=== PATIENT | female | born 1985 | race Caucasian/White ===

== ENCOUNTER 2019-10-16 11:22 | Observation (INO) | payer OTHER, SELFPAY ==
--- NOTE | ~2019-10-16 | US_ITS ---
EXAMINATION: US OB BPP wo non-stress DATE: 10/16/2019 12:37 INDICATION: Gestational diabetes. Third trimester. TECHNIQUE: Real-time pelvic ultrasound was performed. COMPARISON: None. FINDINGS: There is a single living fetus in vertex presentation. The placenta is anterior. heart rate is 131 beats per minute (bpm). Biophysical profile performed by the technologist: breathing (30 sec sustained breathing in 30 minutes): 2 out of 2 movement (3 gross body movements in 30 minutes): 2 out of 2 tone (one episode of aylyhmx-lucuhnnxt-pbbafoe limb movement): 2 out of 2 Amniotic fluid pocket (2 cm): 2 out of 2 Total score: 8 out of 8 IMPRESSION: 1. Single living fetus in vertex presentation. 2. Biophysical profile 8 out of 8. Reviewed, dictated and finalized at location A.
[2019-10-16 11:22] VITALS: BMI 22.0
[2019-10-16] MEDS: BETAMETHASONE SOD PHOS/ACETATE 30 MG/5 ML VIAL 12 MG IM (14:11)
--- NOTE | 2019-10-16 14:28 | OBADM ---
This patient, Jia Reynoso, admitted to the OB room OB Post 115 for observation. Patient/family oriented to hospital policies and general routines including ID bracelet, bed and alarms, visiting hours, pain management, procedures, bathroom and other care routines, personal items, smoking policy, room service/diet, and visiting hours. Patient/Family are encouraged to report perceived risks to care and to ask questions if they do not understand what they are told or what they should do.
--- NOTE | 2019-11-09 08:09 | PM.OBTRLD ---
OB - Triage/Final Diagnosis Visit Information Date of evaluation: 10/16/19 Final Diagnosis (1) False labor: Code(s): O47.9 - False labor, unspecified Status: Acute
== END 2019-10-16 14:15 | disposition home or self-care (01) ==
LOC: ANHOBOP 13:17 → ANHOBPP 13:38
PROVIDERS: Admitting Provider Obstetrics & Gynecology; Visit Provider Obstetrics & Gynecology
DX: O47.03 False labor before 37 completed weeks of gestation, third trimester (principal); Z3A.35 35 weeks gestation of pregnancy
CPT/HCPCS: 76819; 96372; G0378; G0379; J0702

== ENCOUNTER 2019-10-17 15:19 | Observation (INO) | payer OTHER, SELFPAY ==
--- NOTE | 2019-10-17 15:45 | OBADM ---
This patient, Jia Reynoso, admitted to the OB room Labor/Delivery/Recovery 119 for observation. Patient/family oriented to hospital policies and general routines including ID bracelet, bed and alarms, visiting hours, pain management, procedures, bathroom and other care routines, personal items, smoking policy, room service/diet, and visiting hours. Patient/Family are encouraged to report perceived risks to care and to ask questions if they do not understand what they are told or what they should do.
[2019-10-17 16:31] VITALS: BP 109/51; PULSE 79
[2019-10-17 16:46] VITALS: BP 106/57; PULSE 72
[2019-10-17] MEDS: BETAMETHASONE SOD PHOS/ACETATE 30 MG/5 ML VIAL 12 MG IM (16:56)
[2019-10-17 17:01] VITALS: BP 109/60; PULSE 70
[2019-10-17 17:16] VITALS: BP 107/52; PULSE 68
[2019-10-17 17:31] VITALS: BP 108/59; PULSE 71
--- NOTE | 2019-11-09 08:05 | PM.OBTRLD ---
OB - Triage/Final Diagnosis Visit Information Date of evaluation: 10/17/19 Reason for evaluation: threatened labor Final Diagnosis (1) False labor: Code(s): O47.9 - False labor, unspecified Status: Acute
== END 2019-10-17 17:38 | disposition home or self-care (01) ==
PROVIDERS: Admitting Provider Obstetrics & Gynecology; Visit Provider Obstetrics & Gynecology
DX: O47.03 False labor before 37 completed weeks of gestation, third trimester (principal); Z3A.35 35 weeks gestation of pregnancy
CPT/HCPCS: 96372; G0378; G0379; J0702

== ENCOUNTER 2019-10-28 05:54 | Inpatient (IN) | payer OTHER, SELFPAY ==
[2019-10-28] VITALS (61 sets, daily range): BP systolic 101–150; BP diastolic 59–95; PULSE 54–103; RESP 14–16; TEMP 36.3–36.8; O2SAT 99–100
[2019-10-28] MEDS: LACTATED RINGERS 1,000 ML 125 ML IV CONT ×2 (07:09→08:47)
--- NOTE | 2019-10-28 07:16 | WPDOBADMIT ---
Obstetrics - Admit Note Admission Note: record reviewed. No pertinent additions to the history and/or any subsequent changes in the physical findings that are not consistent with the expected course of the were found. MIL for FGR, attempted AROM, pitocin, anticipate vaginal delivery Additions to the history and/or subsequent changes in the physical findings follow. None.
[2019-10-28] MEDS: OXYTOCIN 30 UNITS/NS 500 ML 30 UNITS/500 ML BAG IV CONT (07:17)
--- NOTE | 2019-10-28 07:24 | WPDANESEPP ---
Anes - Eval Pre Procedure Procedure: Labor epidural Date/Time: 10/28/19 07:24 Surgeon: saleem Preop Diagnosis: labor pain Pre Op Diagnosis: IND Patient Data Age: 34 Gender: F Height: Weight: Allergies Allergy/AdvReac Type Severity Reaction Status Date / Time Sulfa (Sulfonamide Allergy Severe Hives / Verified 12/18/12 09:09 Antibiotics) Red Face Penicillins Allergy Hives Verified 10/16/19 13:41 Home Medications Medication Instructions Recorded Confirmed Type PNV cmb#95-ferrous fumarate-FA 1 tablet PO 10/16/19 History [] Patient hx anesthesia problems: none Family hx anesthesia problems: none PMFSH Family History Family History (Updated 10/16/19 @ 13:44 by Arnaldo Chen RN) Mother Hypertension Grandparent Diabetes mellitus Acute myocardial infarction Congestive heart failure Sibling AVM (arteriovenous malformation) brain Social History Social History Spiritual care concerns: No Exam Day of Procedure 10/28/19 07:24
[2019-10-28 07:30] LABS: Basophils Absolute Auto 0.1 K/mm3 (0.0-0.1); Basophils Percent Auto 0.4 % (0.2-1.2); Eosinophils Absolute Auto 0.2 K/mm3 (0-0.3); Eosinophils Percent Auto 1.6 % (0-4.4); Hematocrit 46.5 % (37.0-47.0); Hemoglobin 16.1 g/dL (12.0-15.0); Immature Granulocyte Absolute 0.05 K/mm3 (0.00-0.031); Immature Granulocyte Percent A 0.4 % (0-0.5); Lymphocytes Percent Auto 24.5 % (18.3-44.2); Mean Corpuscular HGB Conc 34.6 g/dl (32-36); Mean Corpuscular Hemoglobin 32.4 pg (26-34); Mean Corpuscular Volume 93.6 fl (80-100); Mean Platelet Volume 12.4 fl (7.4-10.4); Monocytes Absolute Auto 0.9 K/mm3 (0.1-0.6); Monocytes Percent Auto 6.5 % (2.6-8.5); Neutrophils Absolute Auto 9.2 K/mm3 (1.3-6.7); Neutrophils Percent Auto 66.6 % (45.5-73.1); Platelet Count Result 249 k/mm3 (150-375); Red Blood Count 4.97 M/mm3 (4.2-5.4); Red Cell Distribution Width 14.1 % (11.5-14.5); White Blood Count 13.9 K/mm3 (4.5-10.0)
[2019-10-28 08:57] LABS: Glucose Point of Care 69 (65-105)
[2019-10-28 10:57] LABS: Amphetamine Screen Urine Negative (Negative); Barbiturate Screen Urine Negative (Negative); Benzodiazepines Screen Urine Negative (Negative); Cannabinoid Screen Urine Positive (Negative); Cocaine Screen Urine Negative (Negative); Methadone Screen Urine Negative (Negative); Opiate Screen Urine Negative (Negative); Phencyclidine Screen Urine Negative (Negative)
--- NOTE | 2019-10-28 11:34 | PM.OBPRVD ---
OB - Delivery Note Procedure Delivery date: 10/28/19 Procedure: vaginal delivery, growth restriction Intrapartal events: Diabetes (diet) Induction method: AROM Delivery monitor: external FHT and external uterine Route of delivery: Laceration description: Perineal - 1st Degree Delivery repair: vicryl Specimen: Yes Estimated blood loss (mL): 76 Anesthesia type: Epidural Disposition: other () Baby Date of : 10/28/19 Time of : 11:23 Weeks of gestation at delivery: 37 gender: Female Weight (pounds): 4 Weight (ounces): 7 presentation: vertex position: Left Occiput Anterior Placenta delivery description: Spontaneous cord vessel description: 3 Vessels and Clamped/Cut Narrative: baby skin to skin mother and baby in stable condition
[2019-10-28] MEDS: OXYTOCIN 30 UNITS/NS 500 ML 30 UNITS/500 ML BAG 125 UNITS IV CONT (12:16)
--- NOTE | 2019-10-28 13:25 | PC.NURSE ---
Addendum entered by Cira Gaffney RN 10/29/19 14:20: pt seen at 1525 Original Note: Mother called for assist with feeding. Consulted with patient, mother reports she breastfed first child without issues. This infant is early 37 weeks, discussed possible sleepiness, feeding inconsistencies and latch/tone issues. Reviewed feeding cues, frequencies, duration of feedings, feeding elimination flow sheet, and signs of adequate intake. Demonstrated stimulation techniques to wake for feeding. Assisted with to breast. Reviewed positioning/alignment in cross cradle, holding breast in U hold and guided asymmetrical latch on. Several attempts before infant was able to latch correctly. Infant nursed eagerly with burst followed with pausing, occasional swallowing noted. Reviewed signs of a correct latch, effective nursing and suck swallow ratio. was able to maintain latch without discomfort to mother. Nipple care reviewed. Suggested to stimulate to keep awake and interested in feeding for increased intake and maintaining deep latch. Discussed initiating pumping if continues with inconsistent feeding. Instructed mother to call out for RN assistance if she is unable to latch for feeding or she has discomfort with nursing. Instructed feeding should be initiated three hours from start of last feeding or if feeding cues are noted before. Mother voiced understanding of information shared.
[2019-10-28] MEDS: IBUPROFEN 600 MG TABLET PO (15:39)
[2019-10-28] MEDS: DOCUSATE SODIUM 100 MG CAPSULE PO (15:39)
--- NOTE | 2019-10-28 17:26 | PC.NURSE ---
Addendum entered by Reva De La Paz RN 10/28/19 17:26: Pt. admitted to room at 1406. Original Note: Patient transferred to post room # 283 per wheelchair. Support person present. Oriented to unit, room, information board, rooming in, admission packet and security measures. Patient verbalizes understanding.
[2019-10-29 05:25] LABS: Hematocrit 43.9 % (37.0-47.0); Hemoglobin 15.2 g/dL (12.0-15.0)
[2019-10-29] MEDS: LANOLIN (LANSINOH) 7.5 GM CREAM 1 APPLIC TOPICAL (07:28)
[2019-10-29] MEDS: DOCUSATE SODIUM 100 MG CAPSULE PO (07:28)
[2019-10-29] MEDS: MULTIVIT/MIN/PREN/FOL AC/IRON TABLET 1 TAB PO (07:28)
[2019-10-29] MEDS: BENZOCAINE 20% AER SPR (*SP) 56 GM CAN 1 SPRAY TOPICAL (07:28)
[2019-10-29] MEDS: WITCH HAZEL 40 PADS 1 PAD TOPICAL (07:28)
--- NOTE | 2019-10-29 07:33 | PM.OBPNVD ---
OB - PN: Subj Subjective Date/time seen: 10/29/19 07:33 Patient comments: no complaints, pain well controlled and other (Lochia similar to menses) baby status: doing well OB - PN: Obj Data Labs CBC & Chem 7: 10/29/19 04:57 Labs: Laboratory Results - last 24 hr 10/28/19 10/28/19 10/28/19 07:06 07:06 08:52 WBC 13.9 H RBC 4.97 Hgb 16.1 H Hct 46.5 MCV 93.6 MCH 32.4 MCHC 34.6 RDW 14.1 Plt Count 249 MPV 12.4 H Immature Gran % (Auto) 0.4 Neut % (Auto) 66.6 Lymph % (Auto) 24.5 [place] % (Auto) 6.5 Eos % (Auto) 1.6 Baso % (Auto) 0.4 Lymph # (Auto) 3.40 H [place] # (Auto) 0.9 H Eos # (Auto) 0.2 Baso # (Auto) 0.1 Abs Immat Gran (auto) 0.05 H Absolute Neuts (auto) 9.2 H Absolute Nucleated RBC 0.0 Nucleated RBC % 0.0 Cord ABG pH Cord ABG pCO2 Cord ABG pO2 Cord ABG HCO3 Cord ABG Base Excess Cord VBG pH Cord VBG pCO2 Cord VBG pO2 Cord VBG HCO3 Cord VBG Base Excess POC Capillary Glucose 69 Urine Opiates Screen Urine Methadone Screen Ur Barbiturates Screen Ur Phencyclidine Scrn Ur Amphetamine Screen U Benzodiazepines Scrn Urine Cocaine Screen U Cannabinoids Screen Blood Type O Positive Antibody Screen Negative 10/28/19 10/28/19 10/28/19 10:23 11:41 11:44 WBC RBC Hgb Hct MCV MCH MCHC RDW Plt Count MPV Immature Gran % (Auto) Neut % (Auto) Lymph % (Auto) [place] % (Auto) Eos % (Auto) Baso % (Auto) Lymph # (Auto) [place] # (Auto) Eos # (Auto) Baso # (Auto) Abs Immat Gran (auto) Absolute Neuts (auto) Absolute Nucleated RBC Nucleated RBC % Cord ABG pH Cord ABG pCO2 Cord ABG pO2 Cord ABG HCO3 Cord ABG Base Excess Cord VBG pH Cord VBG pCO2 Cord VBG pO2 Cord VBG HCO3 Cord VBG Base Excess POC Capillary Glucose Urine Opiates Screen Negative Urine Methadone Screen Negative Ur Barbiturates Screen Negative Ur Phencyclidine Scrn Negative Ur Amphetamine Screen Negative U Benzodiazepines Scrn Negative Urine Cocaine Screen Negative U Cannabinoids Screen Positive A Blood Type Antibody Screen 10/29/19 04:57 WBC RBC Hgb 15.2 H Hct 43.9 MCV MCH MCHC RDW Plt Count MPV Immature Gran % (Auto) Neut % (Auto) Lymph % (Auto) [place] % (Auto) Eos % (Auto) Baso % (Auto) Lymph # (Auto) [place] # (Auto) Eos # (Auto) Baso # (Auto) Abs Immat Gran (auto) Absolute Neuts (auto) Absolute Nucleated RBC Nucleated RBC % Cord ABG pH Cord ABG pCO2 Cord ABG pO2 Cord ABG HCO3 Cord ABG Base Excess Cord VBG pH Cord VBG pCO2 Cord VBG pO2 Cord VBG HCO3 Cord VBG Base Excess POC Capillary Glucose Urine Opiates Screen Urine Methadone Screen Ur Barbiturates Screen Ur Phencyclidine Scrn Ur Amphetamine Screen U Benzodiazepines Scrn Urine Cocaine Screen U Cannabinoids Screen Blood Type Antibody Screen OB - PN A/P Plan day: 1 (s/p vaginal delivery, doing well) Plan: routine care and discharge home (Follow up in 4 weeks) Time Spent With Patient Time: Total time spent is greater than 50% in coordination of care (as documented) at patient's floor/unit and/or counseling patient: Exam Const: General: no acute distress GI: Inspection: other (Fundus firm and nontender at umbilicus) GI Palp: Yes Soft to palpation and No Tenderness to palpation present (GI) Extrem: General: no edema
[2019-10-29 07:43] LABS: Rapid Plasma Reagin Non-Reactive (NonReactive)
[2019-10-29 08:00] VITALS: BP 111/71; PULSE 54; RESP 18; TEMP 36.6
--- NOTE | 2019-10-29 09:35 | WPDANLDPN2 ---
Anes-Prog Note L&D Date/Time: 10/29/19 09:35 Comfortable throughout: labor and delivery Neuraxial method: epidural Epidural/Spinal procedure site: clean & non-tender Neuro status: Neuro function grossly intact. Cardiovascular status: normal Respiratory status: normal Airway patency: baseline Mental status: baseline Post-Op hydration status: normal Vital Signs: Last Vital Signs Temp 36.4 C 10/28/19 19:58 Pulse 63 10/28/19 19:58 Resp 14 10/28/19 19:58 BP 122/69 10/28/19 19:58 Pulse Ox 99 10/28/19 19:58 Post-procedural complaints: none Patient feedback: Patient satisfied with anesthetic care.
--- NOTE | 2019-10-29 10:00 | PC.NURSE ---
Patient viewed the discharge video Mother & Baby Care, The First Two Weeks . Patient was given the opportunity and encouraged to ask questions. Patient verbalized understanding of information shared and has been given the mother/baby guide for home reference.
--- NOTE | 2019-10-29 12:00 | PC.NURSE ---
Mother is able to independently latch infant with appropriate positioning/alignment. She denies any nipple discomfort, is feeding as required and waking to feed if needed. has had at least 8 effective feedings in the past 24 hours, and is currently meeting outcomes for weight, output, jaundice and feeding frequencies. Mother states she feels confident to continue effective at home. Reviewed transition to breast milk, signs of adequate intake, and engorgement/relief. Instructed to call ICP if intake/output less than required. Reviewed regular medications mother is taking. Information provided per Lenka. Stressed for waking to feed and keeping infant effectively feeding while at breast due to 37 week and discharging early. Reviewed pumping if infant is not nursing and to supplement EBM/formula as needed. Reviewed community resources on the [facility] website and in the Mom/Baby guide. Information on outpatient services provided. Mother has no further questions at this time.
--- NOTE | 2019-10-29 12:47 | PC.NURSE ---
Self care and infant care discharge instructions given including follow up visit date and time. Mother verbalized understanding. No questions or concerns voiced. Very pleasant and cooperative. FOB at side.
[2019-10-30 10:21] VITALS: BP 110/69; PULSE 69; RESP 20; TEMP 36.8
--- NOTE | 2019-11-01 20:52 | PM.OBDSVD ---
DS: Admitting Diagnosis Admitting Diagnosis Admitting Diagnosis: Encounter for supervision of normal , unspecified, third trimester OB - DS: Summary OB Procedures : None OB Procedures Intrapartum: Spontaneous Vag Delivery OB Procedures: : None Time Spent with Patient Time attestation: Total time spent providing and/or coordinating discharge services: DS: Data Data Completed and Pending Pending studies at discharge: Pending at discharge 10/28/19 11:26 Surgical [PTH] Routine Discharge Plan Discharge Attending physician on discharge: Ajith Castro Consulting providers: Dulce Fields Discharging Clinician: Sabiha Kaur Patient Disposition: Home, Self-Care Activity: may shower and pelvic rest Diet: regular Discharge Instructions: Education: Mom and Baby Guide Given to: Mother Follow-Up: Call your delivering provider's office for an appointment to be seen in: 4 Weeks Mom and baby should come to the [facility] for the follow-up appointment. Appointment Date/Time: October 30, 2019 at 10:00 am What to expect at your follow-up visit: Blood Pressure Check Physical Assessment Call [phone] if you are unable to keep your appointment time. BREAST CARE: 1. Wear a snug supportive bra. 2. For engorgement discomfort: Breast Feeding: A. Apply warm moist washcloths B. Express milk as needed to relieve engorgement C. Wear loose clothing Bottle Feeding: A. May apply ice packs 3. For sore nipples: A. Identify correct latch-on B. Apply warm moist washcloths before and after nursing C. Air dry nipples after nursing D. May apply Lansinoh cream to nipples EPISIOTOMY/PERINEAL CARE: 1. Until bleeding stops, use your chato bottle after urinating 2. Change your pad frequently throughout the day 3. You may take sitz baths several times a day (fill your bathtub with warm water and soak for 20 minutes.) Do NOT bathe in the water 4. No tub baths until seen by your physician - You may shower ACTIVITY: 1. Rest as much as possible. 2. Do not exercise or lift anything heavier than your baby (such as laundry or other children.) 3. Avoid stairs or driving as much as possible. 4. Do not put anything into the vagina. No douching, tampons, or sexual activity until seen by physician. NOTIFY PHYSICIAN IF YOU HAVE ANY QUESTIONS OR IF ANY OF THE FOLLOWING SYMPTOMS OCCUR: 1. If your episiotomy becomes red, swollen, or more painful than what you have experienced in the hospital. 2. If your vaginal bleeding becomes foul smelling. 3. If your vaginal bleeding becomes more heavy than a period or if your bleeding changes from pink to bright red. However, you may pass an occasional walnut-sized clot once or twice for the first week . 4. If you experience a sharp, shooting pain in you calves. 5. If you discover a hard, reddened area on your breast or if you experience flu-like symptoms. DIET: 1. Eat regular, well-balanced meals. 2. Drink plenty of fluids daily. If , drink to thirst. Patient Instructions: Antibiotic Form Stand Alone Forms: General Discharge Information Follow-up/Referrals: Dulce Fields CNM [Certified Nurse Accounts Manager] - 4 Weeks Discharge Medications: New ibuprofen 600 mg Tablet 600 mg PO Q6H PRN (Reason: Cramping) Qty: 60 RF: 0 Continued PNV cmb#95-ferrous fumarate-FA [] 28 mg iron- 800 mcg Tablet 1 tablet PO RF: 0 Date of admission: 10/28/19 05:54 Primary Care Provider: PHYSICIAN NOT ON STAFF,NONSTAFF Admitting Provider: Ajith Castro Discharge Date/Time: 10/29/19 14:42 Attending physician on admission: Sabiha Kaur
== END 2019-10-29 14:42 | disposition home or self-care (01) | DRG 560 ==
LOC: ANHOB2 10-29 13:38 → ANHLDR 10-30 13:40 → ANHOB2 10-30 13:40
PROVIDERS: Advanced Practice Midwife; Admitting Provider Obstetrics & Gynecology; Visit Provider Obstetrics & Gynecology
DX: O36.5930 Maternal care for other known or suspected poor fetal growth, third trimester, not applicable or unspecified (principal); Z37.0 Single live birth; Z3A.37 37 weeks gestation of pregnancy; O36.8330 Maternal care for abnormalities of the fetal heart rate or rhythm, third trimester, not applicable or unspecified; O70.0 First degree perineal laceration during delivery; O24.420 Gestational diabetes mellitus in childbirth, diet controlled; O99.324 Drug use complicating childbirth; F12.90 Cannabis use, unspecified, uncomplicated
CPT/HCPCS: 36415; 80307; 82803; 85014; 85018; 85025; 86592; 86850; 86900; 86901; 88307; A9270; J2590; J2795; J7120

== ENCOUNTER → 2024-11-08 15:52 | Outpatient (CLI) | payer OTHER, SELFPAY ==
--- NOTE | ~2024-11-08 | XR_ITS ---
EXAM: XR_[id number]_CR DATE: 11/08/2024 16:16 HISTORY: M54.2 - Cervicalgia/post fall . COMPARISON: None available. FINDINGS: Craniocervical association and atlantoaxial joint are aligned. No prevertebral soft tissue swelling. Vertebral bodies are aligned. Vertebral body heights are maintained. Mild degenerative dis c disease at C5-6. Normal facets and posterior elements. IMPRESSION: No acute fracture or traumatic malalignment detected in the cervical spine. If pain or sy mptoms persist, or clinical suspicion of injury is high, recommend CT or MRI of the cervical spine fo r further evaluation. Reviewed, dictated and finalized at location K. IMPRESSION: No acute fracture or traumatic malalignment detected in the cervica l spine. If pain or symptoms persist, or clinical suspicion of injury is high, recommend CT or MRI of the cervical spine for further evaluation.
--- NOTE | ~2024-11-08 | XR_ITS ---
EXAM: XR lumbar spine 2-3V DATE: 11/08/2024 16:15 HISTORY: M54.50 - Low back pain, unspecified,post fall . COMPARISON: None available. FINDINGS: IUD of the pelvis were. Mild scoliosis. 5 nonrib-bearing lumbar-type vertebral bodies. Pedi cles intact. 2 mm retrolisthesis at L4-5. Vertebral body heights preserved. Mild disc space narrowing at L4-5. Normal facets and posterior elements. No fracture or dislocation. IMPRESSION: 2 mm retrolisthesis at L4-5, with mild degenerative disc change at this level. No acute f racture detected in the lumbar spine. If pain or symptoms persist, or clinical suspicion of injury is high, recommend CT or MRI of the lumbar spine for further evaluation. Reviewed, dictated and finalized at [facility] K. IMPRESSION: 2 mm retrolisthesis at L4-5, with mild degenerative disc change at this level. No acute fracture detected in the lumbar spine. If pain or symptoms persist, or clinical suspicion of injury is high, recommend CT or MRI of the l umbar spine for further evaluation.
== END ==
PROVIDERS: PCP Nurse Practitioner Family; Visit Provider Nurse Practitioner Family
DX: M79.604 Pain in right leg (principal); M79.605 Pain in left leg; M54.2 Cervicalgia; M51.369 Other intervertebral disc degeneration, lumbar region without mention of lumbar back pain or lower extremity pain
CPT/HCPCS: 72040; 72100

== ENCOUNTER 2024-11-18 10:42 | Outpatient (CLI) | payer OTHER, SELFPAY ==
--- OUTSIDE RECORDS SUMMARY | 2024-11-18 10:49 | XMS_ITS | Data Portability ---
Author Organization [facility] SESARLuís Address [address] [place] [address] Assessment No assessment recorded. Plan of Treatment Reminders Order Date Submit Date Provider Last Modified By Organization Details Last Modified Time Details Appointments None recorded. Lab amylase + lipase, serum 2016 017 [facility], [address], [address], [place], [address], 7 15:59:19 lipid panel, serum 2016 017 [facility], [address], [address], [place], [address], 7 03:03:25 vitamin B12 + folate, serum or blood 2016 017 [facility], [address], [address], [place], [address], 7 15:59:18 CMP, serum or plasma 2016 017 [facility], [address], [address], [place], [address], 7 17:10:59 CBC 2016 017 [facility], [address], [address], [place], [address], 7 17:10:58 lipid panel, serum 2016 017 [facility], [address] [facility] [address], [address], [place], [address], 7 17:10:58 urinalysis , complete 2016 017 [facility], [address] [facility], [address], [place], [address], 7 17:11:01 HIV 1+2 AB + HIV 1 p24 Ag, qualitativ e immunoassa y, serum 2016 017 [facility], [address] [facility] [address], [address], [place], [address], 7 17:10:59 H pylori urea breath test, co2 infrared 2016 017 [facility], [address] [facility], [address], [place], [address], 7 17:11:02 Referral gastroente rologist referral - Please call patient to schedule. 2016 017 [email or web address] Not available 8 12:32:24 Procedures None recorded. Surgeries None recorded. Imaging CT, abdomen + pelvis, w/ contrast - Epigastric abdominal pain and distention 2016 017 [facility] ([facility]), [address] [place], [address], 7 10:11:10 nicolás MIN r - Patient to schedule 2016 017 [facility] ([facility]), [address] [place], [address], 7 13:09:31 Medication Orders ranitidine 150 mg tablet 2016 017 [facility], [address] [place] [address], [address], 7 15:02:54 Patient TargetsNo targets recorded. Patient Instructions Encounter Date Encounter Id Patient Instructions Last Modified By Organization Details Last Modified Time 09/06/2016 [id number] A healthy lifestyle: care instructions [email or web address] Not available 09/06/2016 16:01:21 abdominal pain: care instructions hdoverma Not available 09/06/2016 16:01:21 Labs today and then again in 6 weeks FU in 7 weeks Low CHO, low saturated fat diet oajao Not available 09/06/2016 23:25:37 Lab results were discussed [email or web address] Not available 09/06/2016 23:24:56 Reason for Referral Please call patient to carolyn henry. Referring Physician: Jenny Caraballo, Internal Medicine, Encounter Date: 09/06/2016 Results Created Date Observation Date Name Description Value Unit Range Abnormal Flag Note LastModifiedBy Organization Detail LastModifiedTime 08/02/19 17 08/02/2016 lipid panel , serum cholesterol, total 196 mg/dL 100-19 9 Not Available [facility] ([facility]) [address] [place], [address], 08/02/2016 17:10:58 08/02/19 17 08/02/2016 lipid panel , serum triglyceride s 264 mg/dL 0-149 above high normal Not Available [facility] ([facility]) [address] [place], [address], 08/02/2016 17:10:58 08/02/19 17 08/02/2016 lipid panel , serum LDL chol. (direct) 103 mg/dL 0-99 above high normal Not Available [facility] ([facility]) [address] [place], [address], 08/02/2016 17:10:58 08/02/19 17 08/02/2016 lipid panel , serum HDL cholesterol 79 mg/dL >39 Not Available [facility] [address] [place], [address], 08/02/2016 17:10:58 08/02/19 17 08/02/2016 lipid panel , serum VLDL cholesterol angelia 53 mg/dL 5-40 above high normal Not Available [facility] ([facility]) [address] [facility] [place], [address], 08/02/2016 17:10:58 08/02/19 17 08/02/2016 lipid panel , serum LDL cholesterol calc 64 mg/dL 0-99 Not Available [facility]) [address] [facility] [place], [address], 08/02/2016 17:10:58 08/02/19 17 08/02/2016 lipid panel , serum comment: ADDICTIONS THERAPIST Not Available [facility] ([facility]) [address] [facility] [place], [address], 08/02/2016 17:10:58 08/02/19 17 08/02/2016 lipid panel , serum LDL/HDL ratio 0.8 ratio _unit s 0.0-3. 2 LDL/H DL RATIO MEN WOMEN 1/2 AVG.R ISK 1.0 1.5 AVG.R ISK 3.6 3.2 2X AVG.R ISK 6.2 5.0 3X AVG.R ISK 8.0 6.1 Not Available [facility] ([facility]) [address] [facility], [place], [address], 08/02/2016 17:10:58 08/02/19 17 08/02/2016 CBC WBC 10.3 x10e3 /uL 3.4-10 .8 Not Available [facility] ([facility]) [address] [facility] [place], [address], 08/02/2016 17:10:58 08/02/19 17 08/02/2016 CBC RBC 4.33 x10e6 /uL 3.77-5 .28 Not Available [facility] ([facility]) [address] [facility] [place], [address], 08/02/2016 17:10:58 08/02/19 17 08/02/2016 CBC hemoglobin 14.3 g/dL 11.1-1 5.9 Not Available [facility] ([facility]) [address] [facility] [place], [address], 08/02/2016 17:10:58 08/02/19 17 08/02/2016 CBC hematocrit 43.4 % 34.0-4 6.6 Not Available [facility] ([facility]) [address] [place], [address], 08/02/2016 17:10:58 08/02/19 17 08/02/2016 CBC MCV 100 fL 79-97 above high normal Not Available [facility] ([facility]) [address] [place], [address], 08/02/2016 17:10:58 08/02/19 17 08/02/2016 CBC MCH 33.0 pg 26.6-3 3.0 Not Available [facility] ([facility]) [address] [place], [address], 08/02/2016 17:10:58 08/02/19 17 08/02/2016 CBC MCHC 32.9 g/dL 31.5-3 5.7 Not Available [facility] ([facility]) [address] [facility], [place], [address], 08/02/2016 17:10:58 08/02/19 17 08/02/2016 CBC RDW 14.6 % 12.3-1 5.4 Not Available [facility] ([facility]) [address] [place], [address], 08/02/2016 17:10:58 08/02/19 17 08/02/2016 CBC platelets 272 x10e3 /uL 150-37 9 Not Available [facility] ([facility]) [address] [facility] [place], [address], 08/02/2016 17:10:58 08/02/19 17 08/02/2016 CBC neutrophils 72 % Not Avai lable [facility] ([facility]) [address] [place], [address], 08/02/2016 17:10:58 08/02/19 17 08/02/2016 CBC lymphs 21 % Not Available [facility] ([facility]) [address] [place], [address], 08/02/2016 17:10:58 08/02/19 17 08/02/2016 CBC monocytes 5 % Not Availa ble [facility] ([facility]) [address] [place], [address], 08/02/2016 17:10:58 08/02/19 17 08/02/2016 CBC eos 2 % Not Available [facility] ([facility]) [address] [place], [address], 08/02/2016 17:10:58 08/02/19 17 08/02/2016 CBC basos 0 % Not Available [facility] ([facility]) [address] [place], [address], 08/02/2016 17:10:58 08/02/19 17 08/02/2016 CBC immature cells ADDICTIONS THERAPIST Not Available [facility] ([facility]) [address] [place], [address], 08/02/2016 17:10:58 08/02/19 17 08/02/2016 CBC neutrophils (absolute) 7.3 x10e3 /uL 1.4-7. 0 above high normal Not Available [facility] ([facility]) [address] [place], [address], 08/02/2016 17:10:58 08/02/19 17 08/02/2016 CBC lymphs (absolute) 2.2 x10e3 /uL 0.7-3. 1 Not Available [facility] ([facility]) [address] [place], [address], 08/02/2016 17:10:58 08/02/19 17 08/02/2016 CBC monocytes(ab solute) 0.5 x10e3 /uL 0.1-0. 9 Not Available [facility] ([facility]) [address] [facility], [place], [address], 08/02/2016 17:10:58 08/02/19 17 08/02/2016 CBC eos (absolute) 0.2 x10e3 /uL 0.0-0. 4 Not Available [facility] ([facility]) [address] [facility], [place], [address], 08/02/2016 17:10:58 08/02/19 17 08/02/2016 CBC baso (absolute) 0.0 x10e3 /uL 0.0-0. 2 Not Available [facility] ([facility]) [address] [facility], [place], [address], 08/02/2016 17:10:58 08/02/19 17 08/02/2016 CBC immature granulocytes 0 % Not Available [facility]) [address] [facility], [place], [address], 08/02/2016 17:10:58 08/02/19 17 08/02/2016 CBC immature grans (abs) 0.0 x10e3 /uL 0.0-0. 1 Not Available [facility] ([facility]) [address] [facility], [place], [address], 08/02/2016 17:10:58 08/02/19 17 08/02/2016 CBC NRBC ADDICTIONS THERAPIST Not Available [facility] ([facility]) [address] [facility] [place], [address], 08/02/2016 17:10:58 08/02/19 17 08/02/2016 CBC hematology comments: ADDICTIONS THERAPIST Not Available [facility] ([facility]) [address] [facility], [place], [address], 08/02/2016 17:10:58 08/02/19 17 08/02/2016 CMP, serum or plasm a glucose, serum 98 mg/dL 65-99 Not Available [facility] ([facility]) [address] [place], [address], 08/02/2016 17:10:59 08/02/19 17 08/02/2016 CMP, serum or plasm a BUN 7 mg/dL 6-20 Not Available [facility] ([facility]) [address] [place], [address], 08/02/2016 17:10:59 08/02/19 17 08/02/2016 CMP, serum or plasm a creatinine, serum 0.69 mg/dL 0.57-1 .00 Not Available [facility] ([facility]) [address] [place], [address], 08/02/2016 17:10:59 08/02/19 17 08/02/2016 CMP, serum or plasm a eGFR if nonafricn AM 117 mL/mi n/1.7 3 >59 Not Available [facility] ([facility]) [address] [place], [address], 08/02/2016 17:10:59 08/02/19 17 08/02/2016 CMP, serum or plasm a eGFR if africn AM 135 mL/mi n/1.7 3 >59 Not Available [facility] ([facility]) [address] [place], [address], 08/02/2016 17:10:59 08/02/19 17 08/02/2016 CMP, serum or plasm a BUN/creatini ne ratio 10 8-20 Not Available [facility] ([facility]) [address] [place], [address], 08/02/2016 17:10:59 08/02/19 17 08/02/2016 CMP, serum or plasm a sodium, serum 140 mmol/ L 134-14 4 Not Available [facility] ([facility]) [address] [place], [address], 08/02/2016 17:10:59 08/02/19 17 08/02/2016 CMP, serum or plasm a potassium, serum 3.9 mmol/ L 3.5-5. 2 Not Available [facility] ([facility]) [address] [facility] [place], [address], 08/02/2016 17:10:59 08/02/19 17 08/02/2016 CMP, serum or plasm a chloride, serum 99 mmol/ L 96-106 Not Available [facility] ([facility]) [address] [place], [address], 08/02/2016 17:10:59 08/02/19 17 08/02/2016 CMP, serum or plasm a carbon dioxide, total 22 mmol/ L 18-29 Not Available [facility] ([facility]) [address] [place], [address], 08/02/2016 17:10:59 08/02/19 17 08/02/2016 CMP, serum or plasm a calcium, serum 9.0 mg/dL 8.7-10 .2 Not Available [facility] ([facility]) [address] [place], [address], 08/02/2016 17:10:59 08/02/19 17 08/02/2016 CMP, serum or plasm a protein, total, serum 6.7 g/dL 6.0-8. 5 Not Available [facility] ([facility]) [address] [place], [address], 08/02/2016 17:10:59 08/02/19 17 08/02/2016 CMP, serum or plasm a albumin, serum 4.3 g/dL 3.5-5. 5 Not Available [facility] ([facility]) [address] [place] [address], [address], 08/02/2016 17:10:59 08/02/19 17 08/02/2016 CMP, serum or plasm a globulin, total 2.4 g/dL 1.5-4. 5 Not Available [facility] ([facility]) [address] [place], [address], 08/02/2016 17:10:59 08/02/19 17 08/02/2016 CMP, serum or plasm a A/G ratio 1.8 1.2-2. 2 PLE ASE NOTE REFER ENCE INTER KEVON MATHIS E Not Available [facility] ([facility]) [address] [place], [address], 08/02/2016 17:10:59 08/02/19 17 08/02/2016 CMP, serum or plasm a bilirubin, total 0.6 mg/dL 0.0-1. 2 Not Available [facility] ([facility]) [address] [place], [address], 08/02/2016 17:10:59 08/02/19 17 08/02/2016 CMP, serum or plasm a alkaline phosphatase, S 69 IU/L 39-117 Not Available [facility] ([facility]) [address] [place], [address], 08/02/2016 17:10:59 08/02/19 17 08/02/2016 CMP, serum or plasm a AST (SGOT) 22 IU/L 0-40 Not Available [facility] ([facility]) [address] [place], [address], 08/02/2016 17:10:59 08/02/19 17 08/02/2016 CMP, serum or plasm a ALT (SGPT) 12 IU/L 0-32 Not Available [facility] ([facility]) [address] [place], [address], 08/02/2016 17:10:59 08/02/19 17 08/02/2016 HIV 1+2 AB + HIV 1 p24 Ag, quali tativ e immun oassa y, serum HIV screen 4TH generation wrfx NON REACTI VE non reacti ve Not Available [facility] ([facility]) [address] [place], [address], 08/02/2016 17:10:59 08/16/19 17 08/16/2016 urina lysis , compl ete specific gravity 1.023 1.005- 1.030 Not Available [facility] ([facility]) [address] [place], [address], 08/17/2016 17:11:01 08/16/19 17 08/16/2016 urina lysis , compl ete pH 6.0 5.0-7. 5 Not Available [facility] ([facility]) [address] [place], [address], 08/17/2016 17:11:01 08/16/19 17 08/16/2016 urina lysis , compl ete urine-color ORANGE yellow Not Available [facility] ([facility]) [address] [place], [address], 08/17/2016 17:11:01 08/16/19 17 08/16/2016 urina lysis , compl ete appearance TURBID clear abnormal Not Available [facility] ([facility]) [address] [place], [address], 08/17/2016 17:11:01 08/16/19 17 08/16/2016 urina lysis , compl ete WBC esterase 2+ negati ve abnormal Not Available [facility] ([facility]) [address] [place], [address], 08/17/2016 17:11:01 08/16/19 17 08/16/2016 urina lysis , compl ete protein 2+ negati ve/tra ce abnormal Not Available [facility] ([facility]) [address] [place], [address], 08/17/2016 17:11:01 08/16/19 17 08/16/2016 urina lysis , compl ete glucose NEGATI VE negati ve Not Available [facility] ([facility]) [address] [place], [address], 08/17/2016 17:11:01 08/16/19 17 08/16/2016 urina lysis , compl ete ketones NEGATI VE negati ve Not Available [facility] ([facility]) [address] [place], [address], 08/17/2016 17:11:01 08/16/19 17 08/16/2016 urina lysis , compl ete occult blood 3+ negati ve abnormal Not Available [facility] ([facility]) [address] [place], [address], 08/17/2016 17:11:01 08/16/19 17 08/16/2016 urina lysis , compl ete bilirubin NEGATI VE negati ve Not Available [facility] ([facility]) [address] [place], [address], 08/17/2016 17:11:01 08/16/19 17 08/16/2016 urina lysis , compl ete urobilinogen ,semi-qn 1.0 mg/dL 0.2-1. 0 Not Available [facility] ([facility]) [address] [place], [address], 08/17/2016 17:11:01 08/16/19 17 08/16/2016 urina lysis , compl ete nitrite, urine POSITI VE negati ve abnormal Not Available [facility] ([facility]) [address] [place], [address], 08/17/2016 17:11:01 08/16/19 17 08/16/2016 urina lysis , compl ete microscopic examination SEE BELOW: MICRO SCOPI C WAS INDIC ATED AND WAS PERFO RMED. Not Available [facility] ([facility]) [address] [place], [address], 08/17/2016 17:11:01 04/05/20 17 08/16/2016 urina lysis , compl ete WBC >30 /hpf 0 - 5 abnormal CLUMP S OF LEUKO CYTES PRESE NT. Not Available [facility] ([facility]) [address] [facility], [place], [address], 08/17/2016 17:11:01 08/16/19 17 08/16/2016 urina lysis , compl ete RBC 0-2 /hpf 0 - 2 Not Available [facility] ([facility]) [address] [facility], [place], [address], 08/17/2016 17:11:01 08/16/19 17 08/16/2016 urina lysis , compl ete epithelial cells (non renal) 0-10 /hpf 0 - 10 Not Available [facility] ([facility]) [address] [facility], [place], [address], 08/17/2016 17:11:01 08/16/19 17 08/16/2016 urina lysis , compl ete epithelial cells (renal) ADDICTIONS THERAPIST Not Available [facility] ([facility]) [address] [facility], [place], [address], 08/17/2016 17:11:01 08/16/19 17 08/16/2016 urina lysis , compl ete casts ADDICTIONS THERAPIST Not Available [facility] ([facility]) [address] [facility], [place], [address], 08/17/2016 17:11:01 08/16/1908/16/2016 urina lysis , compl ete cast type ADDICTIONS THERAPIST Not Available [facility] ([facility]) [address] [facility], [place], [address], 08/17/2016 17:11:01 08/16/19 17 08/16/2016 urina lysis , compl ete crystals ADDICTIONS THERAPIST Not Available [facility] ([facility]) [address] [facility], [place], [address], 08/17/2016 17:11:01 08/16/19 17 08/16/2016 urina lysis , compl ete crystal type ADDICTIONS THERAPIST Not Available [facility] [address] [facility], [place], [address], 08/17/2016 17:11:01 08/16/19 17 08/16/2016 urina lysis , compl ete mucus threads PRESEN T not estab. Not Available [facility] ([facility]) [address] [facility], [place], [address], 08/17/2016 17:11:01 08/16/19 17 08/16/2016 urina lysis , compl ete bacteria FEW none seen/f ew Not Available [facility] ([facility]) [address] [facility], [place], [address], 08/17/2016 17:11:01 08/16/19 17 08/16/2016 urina lysis , compl ete yeast ADDICTIONS THERAPIST Not Available [facility] ([facility]) [address] [facility], [place], [address], 08/17/2016 17:11:01 08/16/19 17 08/16/2016 urina lysis , compl ete trichomonas ADDICTIONS THERAPIST Not Available [facility] ([facility]) [address] [facility], [place], [address], 08/17/2016 17:11:01 08/16/19 17 08/16/2016 urina lysis , compl ete comment ADDICTIONS THERAPIST Not Available [facility] ([facility]) [address] [facility], [place], [address], 08/17/2016 17:11:01 08/16/19 17 08/17/2016 H pylor i urea breat h test, co2 infra red H. pylori breath test NEGATI VE negati ve Not Available [facility] ([facility]) [address] [place], [address], 08/17/2016 17:11:02 08/17/19 17 08/16/2016 US, annamarie valdez No observ ation record ed. [facility] ([facility]) [address], [place], [address], 09/06/2016 15:50:30 Result Notes None recorded. Problems No Known Problems Medical Equipment None Reported. Allergies Allergen ID Allergen Name Allergen Category Reaction Reaction Severity Criticality Documentation Date Start Date Code Code System Note Provider Name and Address Organization Details Recorded Time 94058 Substance with sulfonami de structure and antibacte rial mechanism of action (substanc e) medicatio n hives severe Not available 09/06/2016 70232 800 SNOMED Jenny Caraballo MD Attn: Feli kirby,[address] [facility], [place], [address] , [facility] 7 15:48:59 Medications Name Sig Start Date Stop Date Status Note LastModified by Organization Details LastModified Time ranitidine 150 mg tablet Take 1 tablet twice a day by oral route as directed for 30 days. active Not Available Not Available No t Available Vitamin D2 1,250 mcg (50,000 unit) capsule 07/27 completed Not Available Not Available Not Available Tri-Sprinte c (28) 0.18 mg(7)/0.215 mg(7)/0.25 mg(7)-0.035 mg tablet active Not Available Not Available No t Available Gas-X active Not Available Not Availa ble Not Available Tums active Not Available Not Availa ble Not Available Vitals Date Recorded Body weight Heart rate Oxygen saturation Oxygen saturation in Arterial blood by Pulse oximetry Body temperature Systolic And Diastolic Provider Name and Address Organization Details Last Updated DateTime 7 11011.2 3 g 80 /min 98 % 98 % 98.1 [degF] 116/70 mm[Hg] Vanessa Estrada [place] [facility] 7 14:41:27 Date Recorded Body weight Heart rate Body temperature Oxygen saturation Oxygen saturation in Arterial blood by Pulse oximetry Systolic And Diastolic Provider Name and Address Organization Details Last Updated DateTime 7 26117.2 2 g 63 /min 98.4 [degF] 99 % 99 % 110/68 mm[Hg] Vanessa Estrada MA [facility] 7 15:38:36 Social History Question Answer Notes LastModified by Organizat ion Details LastModified Time Tobacco Smoking Status Former Smoker Vanessa Estrada KALEN null, [facility] 07/27/2016 14:44:24 How Much Tobacco Do You Smoke? No hdoverma Information not available 09/06/2016 Sex: Unknown Functional Status None recorded. Mental Status None recorded. Family History Relationship Description Onset Age of this Age Resolved Age Notes LastModified by Organization Details LastModified Time Mother Disorder of thyroid gland hdoverma Not available 2016 14:43:47 Mother Hypertensive disorder hdoverma Not available 2016 14:43:59 Mother Hypercholest erolemia hdoverma Not available 2016 14:44:14 Medical History Condition Response Coronary Artery Disease N Other N High Blood Pressure N Atrial Fibrillation N Kidney or Bladder Problems N Thyroid Problems N GI Problems N Depression N COPD N Blood Clots N Skin Problems N Anemia N Heart Attack (PA) N Anxiety Disorder N Diabetes N Muscle, Joint, or Bone Problems N Seizures/Epilepsy N Acid Reflux (GERD) N Cancer N Stroke N Asthma N Allergies N High Cholesterol Y Hepatitis N Liver Disease N Headaches N Heart Failure N Osteoporosis N Gynecological History Statement/Question Response Current Control Method Obstetrics History GPAL:G 0 P 0 0 0 0 Immunizations Vaccine Type Date Status Note Provider Nam e and Address Organization Details Recorded Time Tdap 05/13/2013 completed Jenny Caraballo MD Attn: [address] [place], [address], [facility] 07/27/2016 14:53:55 Past Encounters Encounter ID Performer Location Encounter Start Date Encounter Closed Date Diagnosis/Indication Diagnosis SNOMED-CT Code Diagnosis ICD10 Code Diagnosis Note [id number] MD Gennaro Kidd (Adult Med) [address] [place] [phone] 07/27/2016 14:22:25 07/27/2016 17:34:39 Adult health examination 615316561 Z00.01 Right uppe r quadrant pain 533283683 R10.11 Hyperlipidemia 79106238 E78.5 [id number] MD Gennaro Kidd (Adult Med) [address] [place] [phone] 09/06/2016 15:14:59 09/06/2016 17:58:50 Abdominal pain 24966978 R10.9 Laboratory test result abnormal 341675617 R89.9 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 Health Concerns Section Related Observation LastModified by Organization Detai ls LastModified Time None Recorded Concern Status LastModified by Organization Details LastModified Time None Recorded Advance Directives Directive None Recorded Payers Insurance Date Sequence Insurance Name Policy Number Policy Lopez Covered Member ID Lopez Member ID Guarantor Name 09/03/2016 1 [facility] (MEDICAID HMO) [id number] Jia Reynoso [id number] Jia Reynoso Notes Date Note Type Note Provider Name and Address Organization Details Recorded Time 07/27/2016 text/html Abdominal PainReported bypatient.Location:[facility] Quality:pain Severity:mild; pain level 2-10/10 Duration:intermitten t Onset/Timing:worse Modifying Factors:nothing gives relief; eating Associated Symptoms:no fever; no chills; no blood in the urine; no shortness of breath;heartburn;roseann sea Other:denies possible 31 y/o WF who presents to establish care.PMHX Hyperlipidemia Jenny Caraballo MD Attn: [address] [place], [address], [facility] 07/27/2016 15:39:34 09/06/2016 text/html Abdominal PainRep[facility]patient.[facility] Quality:pain Severity:mild Duration:intermitten t Onset/Timing:gone now Modifying Factors:nothing gives relief Associated Symptoms:no fever; no chills; no blood in the urine; no heartburn; no shortness of breath Other:denies possible Jenny Caraballo MD Attn: [address] [place], [address], [facility] 09/06/2016 23:25:51 OBGyn Episode No OBEpisode recorded.
--- OUTSIDE RECORDS SUMMARY | 2024-11-18 10:49 | XMS_ITS | Clinical Summary ---
Author Organization [facility] Address [address] [place] [address] Care Team Providers Care Awning Assembler Name Role Phone Unavailable Primary Care Provider Unavailabl e Source Comments [facility],non-owned Affiliates and Associated Physician Practices is amultiple site organization consisting of ambulatory clinics and hospital sitesin [place], [place], [place] and [place]. This disclosure is being madepursuant to the Care Everywhere program and may not contain all information available regarding this patient. Last updated 18.[facility] Allergies Active Allergy Reactions Criticality Noted Date Comments Penicillins Urticaria Medium 10/23/2019 Sulfa Drugs Urticaria Medium 10/23/2019 Medications * Be aware that medications may not be up to date on this document. Alwaysverify current medications with the patient. 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 10/23/2019 Family History Medical History Relation Name Comments Hypertension Mother Aneurysm, Brain Sister Relation Name Status Comments Father Alive Maternal Grandfather Maternal Grandmother Mother Alive Paternal Grandfather Paternal Grandmother Sister Alive Social History Tobacco Use Types Packs/Day Years Used Date Smoking Tobacco: Some Days Cigarettes 0.3 5 Smokeless Tobacco: Never Alcohol Use Standard Drinks/Week Comments Not Currently 0 (1 standard drink = 0.6 oz pur e alcohol) Comments No Sex and Gender Information Value Date Recorded Sex Assigned at Not on file 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 Gender Identity Not on file Sexual Orientation Not on file Last Filed Vital Signs Vital Sign Reading Time Taken Comments Blood Pressure 126/75 10/26/2019 11:04 AM CDT Pulse 75 10/26/2019 11:04 AM CDT Temperature 36.6 C (97.9 F) 10/26/2019 11:04 AM CDT Respiratory Rate - - Oxygen Saturation - - Inhaled Oxygen Concentration - - Weight - - Height 157.5 cm (5' 2) 10/26/2019 11:04 AM CDT Body Mass Index - - Plan of Treatment Health Maintenance Due Date Last Done Comments HIV SCREENING 2001 HEPATITIS C SCREENING 01/25/2004 DTAP/TDAP/TD VACCINES (1 - Tdap) 2005 HEPATITIS B VACCINE (1 of 3 - 19+ 3-dose series) 2005 COVID-19 VACCINE ( - 2023-2 5 season) 2024 DEPRESSION SCREENING 05/13/2024 INFLUENZA VACCINE (#1) 2025 ZOSTER VACCINE (1 of 2) 01/30/2036 HIB VACCINE Aged Out No longer eligi ble based on patient's age to complete this topic HPV VACCINE Aged Out No longer eligi ble based on patient's age to complete this topic MENINGOCOCCAL (Group B) VACC INE SHARED DECISION-MAKING Aged Out No longer eligibl e based on patient's age to complete this topic MENINGOCOCCAL GROUPS A/C/Y/W VACCINE Aged Out No longer eligible b ased on patient's age to complete this topic PNEUMOCOCCAL VACCINE Aged Out No long er eligible based on patient's age to complete this topic Insurance [address] [address] [facility]
--- OUTSIDE RECORDS SUMMARY | 2024-11-18 10:49 | XMS_ITS | Data Portability ---
Author Organization [facility], [place] Address [address] [place] [place] [place] [address] Assessment Encounter Date Assessment Date Assessment LastModified by Organization Details LastModified Time 06/08/2020 06/08/2020 Annual gynecological exam performed. Patient will come back in a year unless there are new symptoms. reviewed mirena IUD, pt will call with cycle Not available 06/08/2020 15:50:44 07/19/2020 07/19/2020 clark well f/u one month iud check Not available 07/19/2020 10:01:13 Plan of Treatment Reminders Order Date Submit Date Provider Last Modified By Organization Details Last Modified Time Details Appointments None recorded . Lab None recorded . Referral None recorded . Procedures None recorded . Surgeries None recorded . Imaging non-stre ss test 020 10/27/19 20 [email or web address] [place], [address], [place], [address], 0 13:43:19 Medication Orders Slynd 4 mg (28) tablet 020 11/30/19 20 [email or web address] 1 [facility], [address], [place], [address], 1 09:49:11 Patient TargetsNo targets recorded. Patient Instructions Encounter Date Encounter Id Patient Instructions Last Modified By Organization Details Last Modified Time 11/25/2019 [id number] start saturday on pop, discussed effectiveness of slynd, , call if any questions f/u wwe Not available 11/30/2019 16:17:51 06/08/2020 [id number] Suggest Calcium with Vitamin D if not eating in diet. Patient advised to get annual flu shot. Recommend yearly physicals and preform monthly breast exams. Genetic testing is available for patients with family history of cancer. Engage in safe sexual practices, use condoms. Encouraged to have daily exercise. Avoid tobacco and illicit drugs, moderation of alcohol. If BMI greater than 25 dietary consult advised. If you have any questions please call or email. Not available 06/08/2020 15:50:49 08/24/2020 [id number] doing well, f/u wwe in may 2021 Not available 08/24/2020 15:08:04 Reason for Referral None Reported. Results Created Date Observation Date Name Description Value Unit Range Abnormal Flag Note LastModifiedBy Organization Detail LastModifiedTime 09/29/1909/29/2019 non-s tress test Interpretati on Reacti ve. Gavino valdez RN Not Available [place] [address], [place], [address], 09/29/2019 14:55:49 10/02/1910/02/2019 non-s tress test Heart Rate 125 Not Available [facility]ince [address], [place], [address], 10/02/2019 11:36:04 10/02/1910/02/2019 non-s tress test Acceleration s Yes Not Available [facility] [address], [place], [address], 10/02/2019 11:36:04 10/02/1910/02/2019 non-s tress test Interpretati on Reacti ve - Krysten wild RN Not Available [place] [address], [place], [address], 10/02/2019 11:36:04 10/06/19 20 10/06/2019 US, obste tric, bioph ysica l profi le + non-s tress test BPP 12/18 Not Available [place] [address], [place], [address], 10/06/2019 17:02:58 10/06/19 20 10/06/2019 non-s tress test Interpretati on NR. Needs BPP. heike muñoz RN Not Available [place] [address], [place], [address], 10/06/2019 15:49:55 10/09/19 20 10/09/2019 non-s tress test Interpretati on Reacti ve. heike muñoz RN Not Available [place] [address], [place], [address], 10/09/2019 11:30:36 10/13/19 20 10/13/2019 non-s tress test Interpretati on Reacti ve. Gavino valdez RN Not Available [place] [address], [place], [address], 10/13/2019 14:59:25 10/16/19 20 10/16/2019 non-s tress test Interpretati on Nonrea ctive, needs repeat nst and bpp at rob on per sp Not Available [place] [address], [place], [address], 10/16/2019 11:38:33 10/20/19 20 10/22/2019 strep tococ cus group B DNA GB specimen source Vagina l/Rect al Not Available [facility] ([facility]) [address], [place], [address], 10/22/2019 11:05:47 10/20/19 20 10/22/2019 strep tococ cus group B DNA spec type Cultur e Swab Not Available [facility] ([facility]) [address], [place], [address], 10/22/2019 11:05:47 10/20/19 20 10/22/2019 strep tococ cus group B DNA group B strep by PCR NOT DETECT ED not detect ed Inter preta tion: A posit nam resul t indic ates the detec tion of Group B Strep tococ cus DNA but not neces saril y the prese nce of viabl e organ isms; it is presu mptiv e for the prese nce of Group B Strep tococ cus. A negat nam resul t does not exclu de the possi bilit y of infec tion since very low level s of micro organ ism or sampl ing error may cause a false negat nam resul t. This assay is highl y accur ate, but rare false posit nam and false negat nam resul ts may occur . Metho dolog y: This resul t was deter mined using the FDA-c leare d BD Max GBS Assay . The BD Max GBS Assay is a quali tativ e in vitro diagn ostic test for the rapid detec tion of Group B Strep tococ cus (GBS) DNA in vagin al/re ctal speci mens from prepa rtum or intra partu m women utili zing real- time PCR. [facility] by [facility], [address], [place] [address] , Anthony Erwin ra, DO, Labor atory Dire tor. Not Available [facility] ([facility]) [address], [place], [address], 10/22/2019 11:05:47 10/20/19 20 10/20/2019 non-s tress test Interpretati on Reacti ve-MK, RN Not Available [address], [place], [address], 10/20/2019 14:07:16 10/23/19 20 10/23/2019 non-s tress test Interpretati on Reacti ve-MKl auster roxann, RN Not Available [place] [address], [place], [address], 10/23/2019 11:28:35 10/27/19 20 10/27/2019 non-s tress test Interpretati on Reacti ve-MKl ausgarland RN Not Available [place] [address], [place], [address], 10/27/2019 10:51:36 06/13/19 21 06/13/2020 US, socorro downs md interpretati on Not Available [facility] [address], [place], [address], 09/22/2019 16:25:29 06/24/19 21 06/24/2020 US, socorro downs md interpretati on Not Available [facility] [address], [place], [address], 10/20/2019 14:55:13 07/20/19 21 07/19/2020 CT/GC and trich omona s vagin jamison (rrna ), urine chlamydia trachomatis, PCR Negati ve negati ve Not Available [facility] (Lab) [address] [place], [address], 07/20/2020 13:53:13 07/20/19 21 07/19/2020 CT/GC and trich omona s vagin jamison (rrna ), urine neisseria gonorrhoeae, PCR Negati ve negati ve Not Available [facility] (Lab) [address], [address], 07/20/2020 13:53:13 07/20/19 21 07/19/2020 CT/GC and trich omona s vagin jamison (rrna ), urine trichomonas vaginalis ribosomal RNA (rrna) Negati ve negati ve Not Available [facility] (Lab) [address] [facility], [place], [address], 07/20/2020 13:53:13 07/20/19 21 07/19/2020 pregn juanita test, urine HCG negati ve Not Available [place] [address], [place], [address], 07/19/2020 10:25:45 10/06/19 US, obste tric, bioph ysica l profi le No observ ation record ed. [email or web address] [place] [address], [place], [address], 10/07/2019 10:56:47 10/16/19 20 10/16/2019 US, obste tric, limit ed No observ ation record ed. [email or web address] [facility] [address], [place], [address], 10/19/2019 14:55:19 10/17/19 20 10/17/2019 non-s tress test No observ ation record ed. [email or web address] Not Available 2019 16:11:58 10/20/19 US, obste tric, bioph ysica l profi le + non-s tress test No observ ation record ed. [email or web address] [place] [address], [place], [address], 10/23/2019 13:44:58 10/27/19 20 10/26/2019 US, obste tric, limit ed No observ ation record ed. [email or web address] [facility] [address] [place], [address], 10/27/2019 17:36:55 10/27/19 20 10/26/2019 US, obste tric, limit ed No observ ation record ed. [email or web address] [facility] [address] [place], [address], 10/27/2019 17:36:55 10/27/19 20 10/26/2019 US, obste tric, follo w-up No observ ation record ed. [facility] [address] [place] [address], [address], 10/27/2019 17:32:13 Result Notes None recorded. Problems Name Problem SNOMED Code Status Onset Date Resolution Date Notes Provider Name and Address Organization Details Recorded Time Pregnanc y 49171842 Completed 201905/27/2020 Tobias herron, [facility] 17:10:57 Gestatio n less than 9 weeks 526723060 Completed 201806/08/2020 Less than 8 weeks gestatio n of pregnanc y;Record ed Elsewher e: No Locat ion: [facility] S ource: [facility] [employer] [employer] phil: N Spencer ce ID: 0001 Noman lable Time: 11:30:00 AM Neva Flaherty [facility], [facility] 15:24:22 Palpitat ions 65365109 Completed 201406/08/2020 Palpitat ions;Rec orded Elsewher e: No Locat ion: [facility] S ource: [facility] [employer] [employer] phil: N Spencer ce ID: 0001 Noman lable Time: 01:00:00 PM Neva herron [facility] 15:24:37 Threaten ed miscarri age [id number] Completed 201806/08/2020 Threaten ed ;Recorde d Elsewher e: No Locat ion: [facility] S ource: [facility] [employer] phil: N Toñoti ce ID: 0001 Noman lable Time: 11:45:00 AM Neva Flaherty [facility] 15:25:[address] Concept Completed 201806/08/2020 Encntr for general adult medical exam w/o abnormal findings ;Recorde d Elsewher e: No [facility]at [facility]: [facility] phil: N Toñoti ce ID: 0001 Noman lable Time: 10:30:00 AM Neva herron [facility] 15:24:59 Screenin g for malignan t neoplasm of cervix Completed 201406/08/2020 Screenin g for malignan t neoplasm s of the cervix;R ecorded Elsewher e: No Locat ion: [facility] To[facility]oti ce ID: 0001 Noman lable Time: 01:00:00 PM Neva herron, [facility] 15:24:51 Pregnanc y test positive [id number] Completed 201206/08/2020 Pregnanc y examinat ion or test, positive result;R ecorded Elsewher e: No Locat ion: [facility] N Toñoti ce ID: 0001 Noman lable Time: 08:45:00 AM Neva herron, [facility] 15:24:45 Normal pregnanc y in multigra nikki [id number] 4106 Completed 201906/08/2020 Encounte r for suprvsn of normal pregnanc y, second trimeste r;Record ed Elsewher e: No Locat ion: [facility] S ource: [facility] [employer] [employer] phil: N Practi ce ID: 0001 Noman lable Time: 02:30:00 PM Neva herron [facility] 1 15:24:31 Breast lump [id number] Completed 201408/24/2020 Lump in breast;R ecorded Elsewher e: No [facility] [employer] phil: N Practi ce ID: 0001 Noman lable Time: 11:30:00 AM Neva herron [facility] 1 14:51:57 Finding of viabilit y of pregnanc y [id number] Completed 201806/08/2020 Pregnanc y w inconclu sive viabilit y, unsp;Rec orded Elsewher e: No Locat ion: [facility] S ource: [facility] [employer] phil: N Toñoti ce ID: 0001 Noman lable Time: 11:30:00 AM Neva Flaherty [facility], [facility] 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 15:25:02 Amenorrh ea [id number] Completed 201208/24/2020 Absence of menstrua tion;Rec orded Elsewher e: No Locat ion: [facility] S ource: [facility] [employer] phil: N Toñoti ce ID: 0001 Noman lable Time: 08:45:00 AM Neva Flaherty gopal, [facility] 14:51:55 Postpart um care Completed 201206/08/2020 Post Followup ;Recorde d Elsewher e: No Locat ion: [facility] S ource: [facility] [employer] [employer] phil: N Spencer ce ID: 0001 Noman lable Time: 02:30:00 PM Neva Mitchelltz gopal [facility] 1 15:24:39 Urinary tract infectio us disease 03840296 Completed 201806/08/2020 Urinary tract infectio n, site not specifie d;Record ed Elsewher e: No Locat ion: [facility] N Spencer ce ID: 0001 Noman lable Time: 01:15:00 PM [facility] 1 15:25:13 Antenata l screenin g Completed 201806/08/2020 Encounte r for antenata l screenin g for nuchal transluc ency;Rec orded Elsewher e: No Locat ion: [facility] N Spencer ce ID: 0001 Noman lable Time: 10:30:00 AM Neva Flaherty [facility] 1 15:23:38 Contrace ption care Completed 201406/08/2020 Counseli ng and initiati on of contrace ptive method;R ecorded Elsewher e: No Locat ion: [facility]: [facility] Mariluz Palmer ce ID: 0001 Noman lable Time: 01:00:00 PM Neva Flaherty [facility] 1 15:24:09 Antenata l screenin g for malforma tion Completed 201906/08/2020 Encounte r for antenata l screenin g for malforma tions;Re corded Elsewher e: No Locat ion: [facility]: N Toñoti ce ID: 0001 Noman lable Time: 09:45:00 AM Neva Flaherty [facility] 1 15:25:17 Pregnanc y detectio n examinat ion Completed 201806/08/2020 Encounte r for pregnanc y test, result positive ;Recorde d Elsewher e: No Locat ion: [facility] S ource: [facility] [employer] phil: N Practi ce ID: 0001 Noman lable Time: 11:30:00 AM Neva Flaherty [facility], [facility] 1 15:24:42 Evaluati on finding Completed 201806/08/2020 Hematuri a, unspecif ied;David rded Elsewher e: No Locat ion: [facility] S ource: [facility] [employer] phil: N Practi ce ID: 0001 Noman lable Time: 01:15:00 PM Neva Flaherty [facility] 1 15:24:15 Primigra nikki [id number] Completed 201206/08/2020 Supervis ion of normal first pregnanc y;Record ed Elsewher e: No Locat ion: [facility] S ource: [facility] [employer] phil: N Practi ce ID: 0001 Noman lable Time: 08:45:00 AM Neva Flaherty [facility], [facility] 1 15:24:47 Ultrason ography Completed 201206/08/2020 Antenata l screenin g for malforma tion using ultrason ics;David rded Elsewher e: No Locat ion: [facility] S ource: [facility] [employer] phil: N Practi ce ID: 0001 Noman lable Time: 02:30:00 PM Neva Flaherty [facility], [facility] 1 15:25:11 Congenit al malforma tion 153134238 Completed 201206/08/2020 Antenata l screenin g for malforma tion using ultrason ics;David rded Elsewher e: No Locat ion: [facility] S ource: [facility] [employer] [employer] phil: N Practi ce ID: 0001 Noman lable Time: 02:30:00 PM Neva herron [facility] 15:24:03 Evaluati on finding [id number] Completed 201406/08/2020 Oth abn and inconclu sive findings on dx imaging of breast;R ecorded Elsewher e: No Locat ion: [facility] S ource: [facility] [employer] phil: N Toñoti ce ID: 0001 Noman lable Time: 12:01:01 PM Neva Flaherty [facility] 15:24:05 Secondar y amenorrh ea [id number] Completed 201806/08/2020 Secondar y amenorrh ea;Recor ded Elsewher e: No Locat ion: [facility]: [facility]: N Toñoti ce ID: 0001 Noman lable Time: 11:30:00 AM Neva herron [facility] 15:24:54 Delivery normal [id number] Completed 201206/08/2020 Normal delivery ;Practic e ID: 0001 Neva Flaherty [facility] 15:24:12 Labor and delivery complica margaret by heart rate anomaly [id number] Completed 201206/08/2020 HEART RATE NON REASSURI NG;Pract ice ID: 0001 Neva Flaherty [facility], [facility] 15:24:27 Single live from singleto n pregnanc y 763084111 Completed 201206/08/2020 Mother with single liveborn ;Practic e ID: 0001 Neva Flaherty [facility] 15:24:57 Pelvic and perineal pain 208164201 Completed 201806/08/2020 Pelvic and perineal pain;Pra ctice ID: 0001 Neva herron [facility] 1 15:24:35 Gestatio nal diabetes mellitus 80254634 Completed 201908/24/2020 NEHA ROJAS, NSTs @ 32 weeks! Neva Flaherty [facility], [facility] 1 14:52:00 Gestatio nal diabetes mellitus 74977391 Completed 2019 NEHA ROJAS, NSTs @ 32 weeks! Tobias Pascal [facility], [facility] 1 17:10:50 Problem Notes None recorded. Procedures Surgical History Date Name Laterality Status Provider Name and Address Organization Details Recorded Time 1 IUD Insertion completed Dulce Fields CNM [address], [place], [address], [facility] 07/19/2020 10:00:44 1 Date of Last Pap Smear completed Neva Flaherty [facility] 06/08/2020 15:26:01 Imaging Results None recorded. Procedure Notes None recorded. Medical Equipment None Reported. Allergies Allergen ID Allergen Name Allergen Category Reaction Reaction Severity Criticality Documentation Date Start Date Code Code System Note Provider Name and Address Organization Details Recorded Time 104 Product containin g penicilli n (product) medicatio n Not available Not available Not available 08/25/2019 72966 8001 [facility] Megan Woojohny [facility] 0 12:15:30 105 Substance with sulfonami de structure and antibacte rial mechanism of action (substanc e) medicatio n Not available Not available Not available 08/25/2019 28212 8003 [facility] Megan Gutierrez [facility] 0 12:15:54 Medications Name Sig Start Date Stop Date Status Note LastModified by Organization Details LastModified Time Mirena 21 mcg/24 hr (up to 8 years) 52 mg intrauter ine device Take by intraute rine route. 2020 active mirena IUD inserted 07/19/2020 and will 07/19/2025 Lot [id number] xp October 2022 Not Available Not Available Not Available clindamyc in HCl 300 mg capsule 08/24 completed Not Available Not Available Not Available Vitamin D2 1,250 mcg (50,000 unit) capsule take 1 capsule by oral route every week 02/11 completed Prescrib ed Elsewher e: No Locat ion: [facility] odify By: law valdez DateTime : 04/23/20 16 01:30:18 PM Not Available Not Available Not Available Ortho Tri-Cycle n (28) 0.18 mg(7)/0.2 15mg(7)/0 .25 mg(7)-0.0 35 mg tablet take 1 tablet by oral route every 28 days 12/24 completed Prescrib ed Elsewher e: No Locat ion: [facility] odify By: keyur Scott nter DateTime : 02/23/20 16 01:00:00 PM Not Available Not Available Not Available Sprintec (28) 0.25 mg-0.035 mg tablet take 1 tablet by oral route every day 08/24 completed Not Available Not Available Not Available nitrofura ntoin monohydra te/macroc rystals 100 mg capsule take 1 capsule by oral route every 12 hours for 7 days with food active Not Available Not Available No t Available Boostrix Tdap 2.5 Lf unit-8 mcg-5 Lf/0.5 mL intramusc ular suspensio n 11/24 completed Not Available Not Available Not Available GERALD (28) 3 mg-0.02 mg tablet take 1 tablet by oral route every day 01/08 completed Prescrib ed Elsewher e: Yes Loca tion: [facility]ify By: keyur Scott nter DateTime : 01/08/20 12 04:07:48 PM Not Available Not Available Not Available OneTouch Verio test strips 11/24 completed Not Available Not Available Not Available OneTouch Verio Flex Meter 11/24 completed Not Available Not Available Not Available OneTouch Delica Plus Lancet 33 gauge 11/24 completed Not Available Not Available Not Available Afluria Qd (36 mos up)(PF)60 mcg (15 mcg x4)/0.5 mL IM syringe 08/24 completed Not Available Not Available Not Available Slynd 4 mg (28) tablet TAKE 1 TABLET BY MOUTH ONCE DAILY 07/19 completed Not Available Not Available Not Available Vitals Date Recorded Body height Body mass index (BMI) Body weight Systolic And Diastolic Provider Name and Address Organization Details Last Updated DateTime 06/08/2020 157.48 cm 21.8 kg/m2 44425.49 g 130/82 mm[Hg] Neva Flaherty [facility] 06/08/2020 15:23:31 Date Recorded Body height Body mass index (BMI) Body weight Systolic And Diastolic Provider Name and Address Organization Details Last Updated DateTime 07/19/2020 157.48 cm 21.4 kg/m2 38784.31 g 128/76 mm[Hg] Neva Flaherty [facility] 07/19/2020 09:49:06 Date Recorded Body height Body mass index (BMI) Body weight Systolic And Diastolic Provider Name and Address Organization Details Last Updated DateTime 08/24/2020 157.48 cm 20.3 kg/m2 36990.75 g 114/70 mm[Hg] Neva Flaherty [facility] 08/24/2020 14:51:23 Date Recorded Body weight Provider Name an d Address Organization Details Last Updated DateTime 11/25/2019 36259.47782 g Tobias Pascal [facility] 05/27/2020 17:10:51 Date Recorded Body height Body mass index (BMI) Systolic And Diastolic Provider Name and Address Organization Details Last Updated DateTime 11/25/2019 157.48 cm 18.7 kg/m2 131/92 mm[Hg] Neva Flaherty [facility] 11/25/2019 13:05:28 Social History Question Answer Notes LastModified by Organizat ion Details LastModified Time Tobacco Smoking Status Former Smoker Neva herron [facility] 09/08/2019 21:52:19 If You Are , What Was Your Level Of Alcohol Consumption Prior To ? Occasional [email or web address] Information not available 09/08/2019 Are You Blind Or Do You Have Difficulty Seeing? No [email or web address] Information not available 07/19/2020 What Is Your Level Of Caffeine Consumption? Occasional Information not available 07/19/2020 In The 14 Days Before Symptom Onset, Have You Had Close Contact With A Laboratory-confir med COVID-19 While That Case Was Ill? No [email or web address] Information not available 07/19/2020 In The 14 Days Before Symptom Onset, Have You Had Close Contact With A Person Who Is Under Investigation For COVID-19 While That Person Was Ill? No [email or web address] Information not available 07/19/2020 Have You Been To An Area Known To Be High Risk For COVID-19? No [email or web address] Information not available 07/19/2020 Are You Deaf Or Do You Have Serious Difficulty Hearing? No [email or web address] Information not available 07/19/2020 What Type Of Diet Are You Following? REGULAR [email or web address] Information not available 07/19/2020 What Was The Date Of Your Most Recent Tobacco Screening? 08/24/2020 Information not available 08/24/2020 Have You Ever Been Counseled For Unhealthy Alcohol Use? No [email or web address] Information not available 06/08/2020 Do You Use Your Seat Belt Or Car Seat Routinely? Yes [email or web address] Information not available 07/19/2020 Do You Have Smoke And Carbon Monoxide Detectors In Your Home? Yes [email or web address] Information not available 07/19/2020 How Much Tobacco Do You Smoke? No [email or web address] Information not available 11/25/2019 Smoking Pre- Yes [email or web address] Information not available 09/08/2019 Do You Use Sunscreen Routinely? Yes [email or web address] Information not available 07/19/2020 Has Tobacco Cessation Counseling Been Provided? No [email or web address] Information not available 06/08/2020 Sex: Unknown Functional Status Question Answer Note LastModified by Organizat ion Details LastModified Time Do you use any illicit or recreational drugs? No [email or web address] Information not available 06/08/2020 Do you or have you ever used any other forms of tobacco or nicotine? No [email or web address] Information not available 06/08/2020 What is your level of alcohol consumption? Occasional [email or web address] Information not available 09/08/2019 Do you or have you ever used smokeless tobacco? Never used smokeless tobacco [email or web address] Information not available 11/25/2019 Are you able to walk? YESWOREST [email or web address] Information not available 07/19/2020 Do you or have you ever used e-cigarettes or vape? Never used electronic cigarettes [email or web address] Information not available 11/25/2019 What is your exercise level? Occasional [email or web address] Information not available 09/08/2019 Mental Status Question Answer Note LastModified by Organization D etails LastModified Time Do you feel stressed (tense, restless, nervous, or anxious, or unable to sleep at night)? [id number] [email or web address] Information not available 07/19/2020 Family History Relationship Description Onset Age of this Age Resolved Age Notes LastModified by Organization Details LastModified Time Paternal Grandmother Diabetes mellitus [email or web address] Not available 2019 13:59:29 Maternal Grandmother History of hypertension [email or web address] Not available 13:59:45 Maternal Grandmother Myocardial infarction [email or web address] Not available 08/24 14:00:01 Maternal Grandfather Myocardial infarction [email or web address] Not available 08/24 14:00:10 Maternal Grandfather Heart disease [email or web address] Not available 2019 14:01:19 Sister Brain stem hemorrhage [email or web address] Not available 08/24 14:00:44 Mother Hyperthyroid ism smcaley Not available 2019 14:01:37 Maternal Aunt Malignant tumor of breast [email or web address] Not available 06/08 20:05:34 Notes:Maternal grandfather: Heart disease, Stroke Maternal grandmother: Stroke, Hypertension Mother: Hyperthyroid Paternal grandmother: Diabetes mellitus Sister: AVM- 2 brain hemorrhages at 18 Medical History Condition Response Breast Problem Y Gestational Diabetes Y Gynecological History Statement/Question Response Date of Last Pap Smear 06/08/2020 Current Control Method IUD Desired Control Method Date of LMP 07/19/2020 LMP Definite Obstetrics History GPAL:G 2 P 2 0 0 2 Type Value Full Term 2 Living 2 Total 2 Past Encounters Encounter ID Performer Location Encounter Start Date Encounter Closed Date Diagnosis/Indication Diagnosis SNOMED-CT Code Diagnosis ICD10 Code Diagnosis Note [id number] Ramakrishna Castro MD [place] [address],[place] [address] 08/25/2019 11:44:33 08/25/2019 12:51:25 screening 195420367 Z36.2 [id number] Ramakrishna Castro MD [place] [address],[place] [address] 08/25/2019 11:44:33 08/25/2019 12:51:25 Routine care 163288560 Z34.83 [id number] Ramakrishna Castro MD [facility] [address],[place] [address] 08/31/2019 09:37:51 08/31/2019 14:58:39 [id number] [facility] [address],[place] [address] 09/02/2019 10:43:38 09/02/2019 12:16:33 Gestational diabetes mellitus complicating 0613660268 9106 O24.419 [id number] Dulce Fields [facility] [address],[place] [address] 09/09/2019 12:22:41 09/09/2019 13:17:35 Routine care 608689506 Z34.93 [id number] Ramakrishna Castro MD [place] [address],[place] [address] 09/22/2019 15:08:04 09/22/2019 16:42:32 Gestational diabetes mellitus class A1 [id number] O24.410 [id number] Ramakrishna Castro MD [place] [address],[place] [address] 09/22/2019 15:09:02 09/22/2019 16:54:57 Gestational diabetes mellitus 02119735 O36.8330 Z3A.32 [id number] [facility] [address],[place] [address] 09/22/2019 15:09:25 09/23/2019 16:33:39 Routine care 598868546 Z34.93 [id number] Ramakrishna Castro MD [place] [address],[place] [address] 09/25/2019 11:35:08 09/28/2019 12:08:58 Gestational diabetes mellitus class A1 61534191 O24.410 [id number] Sabiha Kaur MD [place] [address],[place] [address] 09/29/2019 14:53:24 09/29/2019 16:46:41 Normal [id number] Z34.93 [id number] Ramakrishna Castro MD [place] [address],[place] [address] 09/29/2019 14:53:45 09/29/2019 15:48:51 Gestational diabetes mellitus class A1 04409641 O24.410 [id number] Ramakrishna Castro MD [place] [address],[place] [address] 10/02/2019 11:26:51 10/02/2019 12:22:17 Gestational diabetes mellitus class A1 09951257 O24.410 [id number] Ramakrishna Castro MD [place] [address],[place] [address] 10/06/2019 14:58:18 10/06/2019 16:14:01 Gestational diabetes mellitus class A1 63292158 O24.410 [id number] Ramakrishna Castro MD [place] [address],[place] [address] 10/06/2019 14:58:50 10/06/2019 16:15:28 Routine care 500761984 Z34.83 [id number] Ramakrishna Castro MD [place] [address],[place] [address] 10/06/2019 17:01:14 10/07/2019 21:34:17 condition affecting obstetrical care of mother 867230775 O36.8330 [id number] Ramakrishna Castro MD [place] [address],[place] [address] 10/09/2019 11:24:45 10/09/2019 13:12:29 Gestational diabetes mellitus class A1 12053681 O24.410 [id number] [facility] [address],[place] [address] 10/13/2019 14:58:34 10/13/2019 16:25:17 Routine care 487111224 Z34.93 [id number] Ramakrishna Castro MD [place] [address],[place] [address] 10/13/2019 14:58:52 10/13/2019 16:25:47 Gestational diabetes mellitus class A1 80609288 O24.410 [id number] Ramakrishna Castro MD [place] [address],[place] [address] 10/16/2019 11:34:07 10/16/2019 14:02:35 Gestational diabetes mellitus class A1 42387927 O24.410 [id number] Ramakrishna Castro MD [place] [address],[place] [address] 10/20/2019 13:55:49 10/20/2019 16:56:52 Gestational diabetes mellitus class A1 53106338 O24.410 [id number] Ramakrishna Castro MD [place] [address],[place] [address] 10/20/2019 13:56:07 10/20/2019 16:55:41 Gestational diabetes mellitus 93686326 O36.5930 Z3A.36 Small for gestational age fetus 909758414 O36.5930 Z3A.36 [id number] Sabiha Kaur MD [place] [address],[place] [address] 10/20/2019 13:56:26 10/20/2019 16:55:31 Normal 41865297 Z34.93 [id number] Ramakrishna Castro MD [place] [address],[place] [address] 10/23/2019 11:26:56 10/23/2019 12:28:08 Gestational diabetes mellitus class A1 98122078 O24.410 [id number] [facility] [address],[place] [address] 10/27/2019 10:42:18 10/27/2019 16:57:07 Routine care 770775371 Z34.93 [id number] Ramakrishna Castro MD [place] [address],[place] [address] 10/27/2019 10:42:40 10/27/2019 13:43:19 Gestational diabetes mellitus class A1 35363466 O24.410 [id number] Dulce Fields [facility] [address],[place] [address] 11/25/2019 12:41:04 11/25/2019 17:02:25 care 608925603 Z39.2 Surveillan ce of oral contraception 426975391 Z30.41 [id number] Dulce Fielsd [facility] [address],[place] [address] 06/08/2020 15:11:38 06/08/2020 16:11:59 Routine gynecologic examination done [id number] 9101 Z01.419 [id number] Dulce Fields [facility] [address],[place] [address] 07/19/2020 09:35:03 07/19/2020 10:07:19 Insertion of intrauterine contraceptive device 95985870 Z30.430 [id number] Dulce Fields [facility] [address],[place] [address] 08/24/2020 14:34:22 08/24/2020 15:48:00 IUD check 957240918 Z30.431 Health Concerns Section Related Observation LastModified by Organization Detai ls LastModified Time None Recorded Concern Status LastModified by Organization Details LastModified Time None Recorded Advance Directives Directive None Recorded Payers Insurance Date Sequence Insurance Name Policy Number Policy Lopez Covered Member ID Lopez Member ID Guarantor Name 08/28/2020 1 [facility] (MEDICAID HMO) [id number] Jia Reynoso [id number] Notes Date Note Type Note Provider Name and Address Organization Details Recorded Time 11/25/2019 text/html VisitReported bypatient.Notes:pp visit baby doing well, wants pill for bcm, breast feeding no complaints Dulce Fields CNM [address], [place], [address], [facility] 11/30/2019 16:18:08 06/08/2020 text/html Annual GYNReport ed bypatient.Menstrual cycle:Normal menses Urinary symptoms:No hematuria; No incontinence Vulva:No genital lesion Vagina:Normal vaginal discharge Breast:No breast pain; No breast lump; No nipple discharge Current Contraception:Monog amous relationship; Wants to discuss contraceptive options Sexual complaints:No sexual complaints; No pain during intercourse; Normal libido Menopausal Symptoms:No menopausal symptoms; Normal vaginal lubrication Psychological symptoms:No depression; No anxiety; No PMDDNotes:does sbe, wants mirena iud, stopped slynd, doing well, baby getting big! Dulce Fields CNM [address], [place], [address], [facility] 06/08/2020 15:51:05 07/19/2020 text/html Patient presents for IUD insertion. reviewed infection, perforation, and expulsion, questions answered. [address], [place], [address], [facility] 07/19/2020 10:01:41 08/24/2020 text/html Patient presents for IUD check, doing well [address], [place], [address], [facility] 08/24/2020 15:08:16 OBGyn Episode Ob Episode Information Episode Created Date Number of Fetuses Patient Bloodtype Patient rh Status Prepregnancy Weight lbs Domestic Partner Domestic Partner Phone Father Name Energy Technician Status 08/25/19 20 1 O Positive 104 CLOSED Fetus Data First Name Last Name Admitted to NICU Weight (g) Sex Living Outcome Pediatric Complications Fetus ID Race Codes Race Delivery Type 2011.81 45 F true Full Term 326 Vaginal Delivery Problems Problem Notes Problem Name Start Date End Date Resolution Snomed Code Not e Gestational diabetes mellitus 09/01/2019 [id number] BS QID, NSTs @ 32 weeks! Teo Calculation Initial Teo Date Initial Exam Date Initial Exam Provider Initial Ultrasound Date Last Menstrual Period Date Ultra Sound Weeks Gestation 11/15/2019 08/25/2019 03/24/2019 01/26/2019 6 Eighteen To Twenty Week Teo Update Ultra Sound Date Fundal Height At Umbil Quickening Date Ultra Sound Latest Weeks Gestation Final Teo Confirmed By Final Teo Confirmed Date Final Teo Date Ultra Sound Latest Days Gestation 05/07/20 19 12 [email or web address] 08/25/2019 11/15/19 20 4 Pre- Flowsheet Flowsheet Date 08/25/2019 Ren Score Blood Edema Fundus Height Fundus Units Glucose Ketones Leukocytes Nitrite Labor Signs Protein Cervic Dilation Cervic Effacement Cervic Station Type Weight in lbs Pre/Post Dialysis Refused BP Diastolic BP Location Tested BP Systolic BP Type Fetus Heart Rate Present Fetus Movement Comments Flowsheet Date 08/25/2019 Ren Score Blood Edema Fundus Height Fundus Units Glucose Ketones Leukocytes Nitrite Labor Signs Protein Cervic Dilation Cervic Effacement Cervic Station 30 trace Type Weight in lbs Pre/Post Dialysis Refused Weight 120.789410689756 BP Diastolic BP Location Tested BP Systolic BP Type 107 Fetus Heart Rate Present A 145 Fetus Movement A Yes Comments Flowsheet Date 08/31/2019 Ren Score Blood Edema Fundus Height Fundus Units Glucose Ketones Leukocytes Nitrite Labor Signs Protein Cervic Dilation Cervic Effacement Cervic Station Type Weight in lbs Pre/Post Dialysis Refused BP Diastolic BP Location Tested BP Systolic BP Type Fetus Heart Rate Present Fetus Movement Comments Flowsheet Date 09/02/2019 Ren Score Blood Edema Fundus Height Fundus Units Glucose Ketones Leukocytes Nitrite Labor Signs Protein Cervic Dilation Cervic Effacement Cervic Station neg none trace Type Weight in lbs Pre/Post Dialysis Refused Weight 118.714441067011 BP Diastolic BP Location Tested BP Systolic BP Type 69 105 Fetus Heart Rate Present Fetus Movement A Yes Comments Flowsheet Date 09/09/2019 Ren Score Blood Edema Fundus Height Fundus Units Glucose Ketones Leukocytes Nitrite Labor Signs Protein Cervic Dilation Cervic Effacement Cervic Station neg none 28 trace Type Weight in lbs Pre/Post Dialysis Refused Weight 120.368828310913 BP Diastolic BP Location Tested BP Systolic BP Type 68 107 Fetus Heart Rate Present A 160 Present Fetus Movement Comments patient is having nausea, re viewed bs, no changes to diet Flowsheet Date 09/22/2019 Ren Score Blood Edema Fundus Height Fundus Units Glucose Ketones Leukocytes Nitrite Labor Signs Protein Cervic Dilation Cervic Effacement Cervic Station Type Weight in lbs Pre/Post Dialysis Refused BP Diastolic BP Location Tested BP Systolic BP Type Fetus Heart Rate Present Fetus Movement Comments Flowsheet Date 09/22/2019 Ren Score Blood Edema Fundus Height Fundus Units Glucose Ketones Leukocytes Nitrite Labor Signs Protein Cervic Dilation Cervic Effacement Cervic Station Type Weight in lbs Pre/Post Dialysis Refused BP Diastolic BP Location Tested BP Systolic BP Type Fetus Heart Rate Present Fetus Movement Comments Flowsheet Date 09/22/2019 Ren Score Blood Edema Fundus Height Fundus Units Glucose Ketones Leukocytes Nitrite Labor Signs Protein Cervic Dilation Cervic Effacement Cervic Station none 31 trace Type Weight in lbs Pre/Post Dialysis Refused Weight 121.572193691448 BP Diastolic BP Location Tested BP Systolic BP Type 75 111 sitting Fetus Heart Rate Present A 140 Fetus Movement A Yes Comments Pt doing well. BS log review ed and all wnl. Flowsheet Date 09/25/2019 Ren Score Blood Edema Fundus Height Fundus Units Glucose Ketones Leukocytes Nitrite Labor Signs Protein Cervic Dilation Cervic Effacement Cervic Station Type Weight in lbs Pre/Post Dialysis Refused BP Diastolic BP Location Tested BP Systolic BP Type Fetus Heart Rate Present Fetus Movement Comments Flowsheet Date 05/07/2019 Ren Score Blood Edema Fundus Height Fundus Units Glucose Ketones Leukocytes Nitrite Labor Signs Protein Cervic Dilation Cervic Effacement Cervic Station none 12 trace Type Weight in lbs Pre/Post Dialysis Refused Weight 107.811364453345 BP Diastolic BP Location Tested BP Systolic BP Type 69 100 sitting Fetus Heart Rate Present A 160 Fetus Movement A No Comments at 12+4 by 6 week U/S n ot c/w LMP (irregular cycles). She has nausea each am and dry heaves, using MJ to help with nausea. Also smoking occasional cigarettes, down from 1/2 ppd. Advised to quit tobacco and MJ. Flowsheet Date 06/12/2019 Ren Score Blood Edema Fundus Height Fundus Units Glucose Ketones Leukocytes Nitrite Labor Signs Protein Cervic Dilation Cervic Effacement Cervic Station trace Type Weight in lbs Pre/Post Dialysis Refused Weight 133.925982759162 BP Diastolic BP Location Tested BP Systolic BP Type 70 110 sitting Fetus Heart Rate Present Fetus Movement A Yes Comments gender us, female Flowsheet Date 07/10/2019 Ren Score Blood Edema Fundus Height Fundus Units Glucose Ketones Leukocytes Nitrite Labor Signs Protein Cervic Dilation Cervic Effacement Cervic Station none trace Type Weight in lbs Pre/Post Dialysis Refused Weight 116.82295961948 BP Diastolic BP Location Tested BP Systolic BP Type 65 100 sitting Fetus Heart Rate Present Fetus Movement A Yes Comments OB [id number] pt states that alcantara ving some nausea and vomiting, anatomy incomplete f/u in 4 weeks, LLP Flowsheet Date 08/04/2019 Ren Score Blood Edema Fundus Height Fundus Units Glucose Ketones Leukocytes Nitrite Labor Signs Protein Cervic Dilation Cervic Effacement Cervic Station none 25 neg Type Weight in lbs Pre/Post Dialysis Refused Weight 117.737151333158 BP Diastolic BP Location Tested BP Systolic BP Type 68 103 sitting Fetus Heart Rate Present A 140 Fetus Movement A Yes Comments OB [id number] pt states that alcantara ving nausea and vomiting on occasion. Flowsheet Date 09/29/2019 Ren Score Blood Edema Fundus Height Fundus Units Glucose Ketones Leukocytes Nitrite Labor Signs Protein Cervic Dilation Cervic Effacement Cervic Station Type Weight in lbs Pre/Post Dialysis Refused BP Diastolic BP Location Tested BP Systolic BP Type Fetus Heart Rate Present Fetus Movement Comments Flowsheet Date 09/29/2019 Ren Score Blood Edema Fundus Height Fundus Units Glucose Ketones Leukocytes Nitrite Labor Signs Protein Cervic Dilation Cervic Effacement Cervic Station none 34 cm trace Type Weight in lbs Pre/Post Dialysis Refused Weight 123.371776008358 BP Diastolic BP Location Tested BP Systolic BP Type 68 126 sitting Fetus Heart Rate Present A 135 Fetus Movement A Yes Comments Glucose negative. bc, rma Al l blood sugars normal except one postprandial 148. Continue diet control. Expecting baby girl Ynes plans to breastfeed and wants POP Flowsheet Date 10/02/2019 Ren Score Blood Edema Fundus Height Fundus Units Glucose Ketones Leukocytes Nitrite Labor Signs Protein Cervic Dilation Cervic Effacement Cervic Station Type Weight in lbs Pre/Post Dialysis Refused BP Diastolic BP Location Tested BP Systolic BP Type Fetus Heart Rate Present Fetus Movement Comments Flowsheet Date 10/06/2019 Ren Score Blood Edema Fundus Height Fundus Units Glucose Ketones Leukocytes Nitrite Labor Signs Protein Cervic Dilation Cervic Effacement Cervic Station Type Weight in lbs Pre/Post Dialysis Refused BP Diastolic BP Location Tested BP Systolic BP Type Fetus Heart Rate Present Fetus Movement Comments Flowsheet Date 10/06/2019 Ren Score Blood Edema Fundus Height Fundus Units Glucose Ketones Leukocytes Nitrite Labor Signs Protein Cervic Dilation Cervic Effacement Cervic Station Type Weight in lbs Pre/Post Dialysis Refused BP Diastolic BP Location Tested BP Systolic BP Type Fetus Heart Rate Present Fetus Movement Comments Flowsheet Date 10/06/2019 Ren Score Blood Edema Fundus Height Fundus Units Glucose Ketones Leukocytes Nitrite Labor Signs Protein Cervic Dilation Cervic Effacement Cervic Station 33 neg Type Weight in lbs Pre/Post Dialysis Refused Weight 122.217143092381 BP Diastolic BP Location Tested BP Systolic BP Type 70 107 Fetus Heart Rate Present A Reactive Fetus Movement A Yes Comments This patient is a 34-year-ol d multiparous female at 34 weeks gestation with gestational diabetes that is diet-controlled. Her blood sugars are exceedingly normal. We agreed to check her fastings every day and to check her postprandial at her biggest meal. This should still allow us to detect worsening gestational DM quickly. Flowsheet Date 10/09/2019 Ren Score Blood Edema Fundus Height Fundus Units Glucose Ketones Leukocytes Nitrite Labor Signs Protein Cervic Dilation Cervic Effacement Cervic Station Type Weight in lbs Pre/Post Dialysis Refused BP Diastolic BP Location Tested BP Systolic BP Type Fetus Heart Rate Present Fetus Movement Comments Flowsheet Date 10/13/2019 Ren Score Blood Edema Fundus Height Fundus Units Glucose Ketones Leukocytes Nitrite Labor Signs Protein Cervic Dilation Cervic Effacement Cervic Station Type Weight in lbs Pre/Post Dialysis Refused BP Diastolic BP Location Tested BP Systolic BP Type Fetus Heart Rate Present Fetus Movement Comments Flowsheet Date 10/13/2019 Ren Score Blood Edema Fundus Height Fundus Units Glucose Ketones Leukocytes Nitrite Labor Signs Protein Cervic Dilation Cervic Effacement Cervic Station 34 trace Type Weight in lbs Pre/Post Dialysis Refused Weight 123.159400696246 BP Diastolic BP Location Tested BP Systolic BP Type 71 109 sitting Fetus Heart Rate Present A 135 Fetus Movement A Yes Comments Contractions. PTL precaution s discussed. BS all normal. Flowsheet Date 10/16/2019 Ren Score Blood Edema Fundus Height Fundus Units Glucose Ketones Leukocytes Nitrite Labor Signs Protein Cervic Dilation Cervic Effacement Cervic Station Type Weight in lbs Pre/Post Dialysis Refused BP Diastolic BP Location Tested BP Systolic BP Type Fetus Heart Rate Present Fetus Movement Comments Flowsheet Date 10/20/2019 Ren Score Blood Edema Fundus Height Fundus Units Glucose Ketones Leukocytes Nitrite Labor Signs Protein Cervic Dilation Cervic Effacement Cervic Station Type Weight in lbs Pre/Post Dialysis Refused BP Diastolic BP Location Tested BP Systolic BP Type Fetus Heart Rate Present Fetus Movement Comments Flowsheet Date 10/20/2019 Ren Score Blood Edema Fundus Height Fundus Units Glucose Ketones Leukocytes Nitrite Labor Signs Protein Cervic Dilation Cervic Effacement Cervic Station Type Weight in lbs Pre/Post Dialysis Refused BP Diastolic BP Location Tested BP Systolic BP Type Fetus Heart Rate Present Fetus Movement Comments Flowsheet Date 10/20/2019 Ren Score Blood Edema Fundus Height Fundus Units Glucose Ketones Leukocytes Nitrite Labor Signs Protein Cervic Dilation Cervic Effacement Cervic Station none 32 cm trace 2cm 50% -2 Type Weight in lbs Pre/Post Dialysis Refused Weight 123.384029784110 BP Diastolic BP Location Tested BP Systolic BP Type 78 R arm 133 sitting Fetus Heart Rate Present Fetus Movement A Yes Comments Glucose negative. bc, rma GB S done. Forgot BS log but states sugars have been higher since receiving steroid injections a few days ago but none above or even close to 200 per her report. Cervix 2/50/-2 today (was 3 cm at hospital). Labor precautions reviewed Flowsheet Date 10/23/2019 Ren Score Blood Edema Fundus Height Fundus Units Glucose Ketones Leukocytes Nitrite Labor Signs Protein Cervic Dilation Cervic Effacement Cervic Station Type Weight in lbs Pre/Post Dialysis Refused BP Diastolic BP Location Tested BP Systolic BP Type Fetus Heart Rate Present Fetus Movement Comments Flowsheet Date 10/27/2019 Ren Score Blood Edema Fundus Height Fundus Units Glucose Ketones Leukocytes Nitrite Labor Signs Protein Cervic Dilation Cervic Effacement Cervic Station Type Weight in lbs Pre/Post Dialysis Refused BP Diastolic BP Location Tested BP Systolic BP Type Fetus Heart Rate Present Fetus Movement Comments Flowsheet Date 10/27/2019 Ren Score Blood Edema Fundus Height Fundus Units Glucose Ketones Leukocytes Nitrite Labor Signs Protein Cervic Dilation Cervic Effacement Cervic Station neg none 37 trace 3cm 60% Type Weight in lbs Pre/Post Dialysis Refused BP Diastolic BP Location Tested BP Systolic BP Type Fetus Heart Rate Present Fetus Movement A Yes Comments PATIENT STATES THAT HAVING C ONTRACTIONS, DISCHARGE, NAUSEA AND VOMITING, NST reactive, plan MIL on 08/09/19 scheduled already Flowsheet Date 11/25/2019 Ren Score Blood Edema Fundus Height Fundus Units Glucose Ketones Leukocytes Nitrite Labor Signs Protein Cervic Dilation Cervic Effacement Cervic Station Type Weight in lbs Pre/Post Dialysis Refused Weight 102.309721728995 BP Diastolic BP Location Tested BP Systolic BP Type 92 131 Fetus Heart Rate Present Fetus Movement Comments Menstrual History Last Menstrual Date Menses Monthly On Bcp Conception Prior Menses Frequency Hcg Plus Date Menarche Onset Age 0901/26/2019 Genetic Screening And Infection History Question Response Note Mental Retardation/Autism false Patient's Age Will Be 35 Years Or Older At Estim ated Date of Delivery false Thalassemia (Irish, Kuwaiti, Mediterranean, Or Background): MCV < 80 false Neural Tube Defect (Meningomyelocele, Spina Bifi da, Or Anencephaly) false Congenital Heart Defect false Down Syndrome false Pepe-Sachs (eg, Cheondoism, Cajun, Kyrgyz-Somali) f alse Tip Disease false Sickle Cell Disease Or Trait () false Hemophilia Or Other Blood Disorders false Muscular Dystrophy false Cystic Fibrosis false Lafayette's Chorea false Intellectual Disability/Autism false If Yes, Was Person Tested For Fragile X? false Other Inherited Genetic Or Chromosomal Disorder false Maternal Metabolic Disorder (eg, Type 1 Diabetes , PKU) false Patient Or Baby's Father Had A Child With Defects Not Listed Above false Recurrent Loss, Or A Stillbirth false Medications (including Suppl ements, Vitamins, Herbs, OTC Drugs), Illicit/Recreational Drugs, Alcohol false If Yes, Agent(s) And Strength/Dosage false Any Other Genetic History false Live With Someone With TB Or Exposed To TB false Patient Or Partner Has History Of Genital Herpes false Rash Or Viral Illness Since Last Menstrual Perio d false History Of STD, Gonorrhea, Chlamydia, HPV, Syphi lis false Other Infection History false History of HIV false History of Hepatitis false Prior GBS-infected child false Hemoglobinopathy Or Carrier false Other Structural Defect false Recent Travel History Outside of Country false Delivery Information Delivery Date Delivery Type Labor Anesthesia Weeks Gestation Incision Type Labor Labor Length Hrs Delivered By Post Complications Tubal Sterilization Discharge Date Comments 0 [facility] 37.3 Dulce Fields CNM GDM Discharge Information Feeding Method Contraceptive Method Maternal HG B and HCT Levels Ob Episode Information Episode Created Date Number of Fetuses Patient Bloodtype Patient rh Status Prepregnancy Weight lbs Domestic Partner Domestic Partner Phone Father Name Energy Technician Status 08/25/19 20 1 CLOSED Fetus Data First Name Last Name Admitted to NICU Weight (g) Sex Living Outcome Pediatric Complications Fetus ID Race Codes Race Delivery Type 2664.85 3 M Full Term 327 Vaginal Delivery Teo Calculation Initial Teo Date Initial Exam Date Initial Exam Provider Initial Ultrasound Date Last Menstrual Period Date Ultra Sound Weeks Gestation 0 Eighteen To Twenty Week Teo Update Ultra Sound Date Fundal Height At Umbil Quickening Date Ultra Sound Latest Weeks Gestation Final Teo Confirmed By Final Teo Confirmed Date Final Teo Date Ultra Sound Latest Days Gestation 0 0 Menstrual History Last Menstrual Date Menses Monthly On Bcp Conception Prior Menses Frequency Hcg Plus Date Menarche Onset Age Delivery Information Delivery Date Delivery Type Labor Anesthesia Weeks Gestation Incision Type Labor Labor Length Hrs Delivered By Post Complications Tubal Sterilization Discharge Date Comments 3 38 Discharge Information Feeding Method Contraceptive Method Maternal HG B and HCT Levels Ob Episode Information Episode Created Date Number of Fetuses Patient Bloodtype Patient rh Status Prepregnancy Weight lbs Domestic Partner Domestic Partner Phone Father Name Energy Technician Status 11/17/19 20 1 DELETED Teo Calculation Initial Teo Date Initial Exam Date Initial Exam Provider Initial Ultrasound Date Last Menstrual Period Date Ultra Sound Weeks Gestation 0 Eighteen To Twenty Week Teo Update Ultra Sound Date Fundal Height At Umbil Quickening Date Ultra Sound Latest Weeks Gestation Final Teo Confirmed By Final Teo Confirmed Date Final Teo Date Ultra Sound Latest Days Gestation 0 0 Menstrual History Last Menstrual Date Menses Monthly On Bcp Conception Prior Menses Frequency Hcg Plus Date Menarche Onset Age Delivery Information Delivery Date Delivery Type Labor Anesthesia Weeks Gestation Incision Type Labor Labor Length Hrs Delivered By Post Complications Tubal Sterilization Discharge Date Comments 0 37.3 GDM Discharge Information Feeding Method Contraceptive Method Maternal HG B and HCT Levels
[2024-11-18 11:07] LABS: Hematocrit 51.0 % (37.0-47.0); Hemoglobin 17.7 g/dL (12.0-15.0); Immature Granulocyte Percent A 0.3 % (0-0.5); Lymphocytes Absolute Auto 3.14 K/mm3 (0.9-3.2); Mean Corpuscular HGB Conc 34.7 g/dl (32-36); Mean Corpuscular Hemoglobin 37.0 pg (26-34); Mean Corpuscular Volume 106.7 fl (80-100); Nucleated Red Blood Cells Absolute Auto 0.000 K/mm3 (0.0-0.012); Nucleated Red Blood Cells Perc 0.0 % (0.0-0.2); Platelet Count Result 258 k/mm3 (150-375); Red Blood Count 4.78 M/mm3 (4.2-5.4); White Blood Count 9.8 K/mm3 (4.5-10.0)
[2024-11-18 11:27] LABS: Add Urine Microscopic? YES; Appearance Urine Turbid (Clear); Glucose Urine UA Negative (Negative); Leukocyte Esterase Ur 2+ LEU/UL (Negative); Need Manual Microscopic Reviewed; Nitrate Urine Positive (Negative); Specific Grav Ur 1.024 (1.001-1.035)
[2024-11-18 11:32] LABS: Alanine Aminotransferase 50 U/L (6-35); Albumin Level 3.6 g/dL (3.5-5.1); Alkaline Phosphatase 184 U/L (38-126); Anion Gap 5 mmol/L (4-12); Aspartate Amino Transferase 111 U/L (14-36); Bilirubin,Total 1.5 mg/dL (0.2-1.3); Blood Urea Nitrogen 3 mg/dL (7-17); Calcium 9.0 mg/dL (8.4-10.2); Carbon Dioxide 30 mmol/L (22-30); Chloride 101 mmol/L (98-107); Cholesterol 202 mg/dL (0-200); Estimated Glomerular Filt Rate > 60; Glucose 98 mg/dL (65-110); HDL Direct 61 mg/dL; Potassium 3.3 mmol/L (3.4-5.0); Sodium 136 mmol/L (137-145); Total Protein 7.0 g/dL (6.3-8.2); Triglycerides 163 mg/dL (<150)
[2024-11-18 11:51] LABS: Macrocytosis 1+ (NORMAL); Schistocytes None Seen
[2024-11-18 12:59] LABS: Thyroid Stimulating Hormone Reflex 2.760 uIU/mL (0.465-4.68)
[2024-11-18 17:32] LABS: Hemoglobin A1C 4.8 % (<5.7)
[2024-11-18 21:52] LABS: Vitamin B12 472.0 pg/mL (239-931)
== END 2024-11-18 10:43 | disposition home or self-care (01) ==
LOC: ANHLAB 10:44
PROVIDERS: PCP Nurse Practitioner Family; Visit Provider Nurse Practitioner Family
DX: Z13.0 Encounter for screening for diseases of the blood and blood-forming organs and certain disorders involving the immune mechanism (principal); Z13.6 Encounter for screening for cardiovascular disorders; Z13.1 Encounter for screening for diabetes mellitus; Z00.00 Encounter for general adult medical examination without abnormal findings; Z13.29 Encounter for screening for other suspected endocrine disorder; R20.2 Paresthesia of skin; M79.601 Pain in right arm; M79.602 Pain in left arm
CPT/HCPCS: 36415; 80053; 80061; 81001; 82607; 83036; 84443; 85025

== ENCOUNTER 2024-11-21 15:54 | Emergency (ER) | payer OTHER, SELFPAY ==
--- NOTE | 2024-11-21 15:56 | ED_ITS ---
HPI - Female Genitourinary General Chief complaint: Urogenital-Female Stated complaint: UTI/headache/vomiting Time Seen by Provider: 11/21/24 16:07 Source: patient and RN notes reviewed Mode of arrival: ambulatory Limitations: no limitations History of Present Illness HPI Narrative: 39-year-old female presents with concern for headache, nausea, vomiting after taking Macrobid for urinary tract infection. Reports she is currently on Macrobid for urinary tract infection that she has been on for 3 days. She reports she was not having symptoms when she was 1st diagnosed, it was a routine urinalysis with a new patient visit. she has been having headache and vomiting. MD elicited complaint: UTI Related Data Home Medications ?Medication ?Instructions ?Recorded ?Confirmed ?Last Taken ?Type multivitamin 1 tablet PO DAILY 11/04/24 11/21/24 Unknown History Allergies Allergy/AdvReac Type Severity Reaction Status Date / Time Sulfa (Sulfonamide Allergy Intermediate Hives / Verified 11/21/24 16:24 Antibiotics) Red Face nitrofurantoin (From AdvReac Intermediate Nausea and Verified 11/21/24 16:24 Macrobid) Vomiting Review of Systems Review of Systems: CONSTITUTIONAL: Denies malaise, chills, sweats, or fever. CARDIOVASCULAR: Denies chest pain, palpitations, or edema. RESPIRATORY: Denies cough or dyspnea. GASTROINTESTINAL: Denies abdominal pain, diarrhea. Reports nausea and vomiting GENITOURINARY: Denies dysuria, frequency, urgency, suprapubic pressure. Denies flank pain or hematuria. SKIN: Denies rash or itching. MUSCULOSKELETAL: Denies back pain or myalgia. NEURO: Reports headache All systems reviewed & are unremarkable except as noted in HPI and below PMFSH Past Medical History Medical History (Updated 11/21/24 @ 16:11 by Adwoa Swenson NP) UTI (urinary tract infection) Polycythemia Low serum potassium Elevated liver enzymes False labor Tobacco abuse BMI < 18.5 Paresthesia and pain of both upper extremities Low back pain radiating to both legs Cervical radicular pain Cervicalgia Anxiety Family History Family History (Updated 11/04/24 @ 14:15 by Kyree Palacios CMA) Mother Hypertension Thyroid disease Grandparent Diabetes mellitus Acute myocardial infarction Congestive heart failure Sibling AVM (arteriovenous malformation) brain Father Depression Anxiety Sibling AVM (arteriovenous malformation) brain Grandparent Diabetes mellitus Hypertension Heart disease Grandparent Lung cancer Heart disease Social History Social History (Updated 11/04/24 @ 14:16 by Kyree Palacios [facility]) Smoking packs per day: 0.5 Smoking cigarettes per day: 10.0 Years smoked: 8 Smoking pack-years: 4.00 Smoking status: Current every day smoker Tobacco type: cigarettes Second hand tobacco smoke exposure: Yes Alcohol intake: current Substance use: current Substance use type: marijuana Spiritual care concerns: No Comments At time of signature, agree with nursing past medical, surgical, social and family history. There is no relevant family history pertinent to the presenting complaint Exam Narrative: GENERAL: Well-appearing, well-nourished, and in no acute distress. HEAD: Normocephalic. EYES: PERRLA, conjunctivae clear. NECK: Supple. No lymphadenopathy CHEST: Clear to auscultation. No respiratory distress. HEART: Regular rate and rhythm. SKIN: Warm, dry, no rash. NEURO: Alert and oriented x3. PSYCH: Normal mood and affect Course Course Emergency Course: Patient is aware of diagnosis, understands and agrees to treatment plan. Anticipatory guidance given. Patient agrees to follow-up as directed and is aware of reasons to seek care at the emergency department. Portions of this record may have been created with voice recognition software Level of Care: Express Care Visit Vital Signs Vital signs: Reviewed. MDM - Female Genitourinary MDM Narrative Medical decision making narrative: Exam findings and UA show no acute concerns or changes; patient is non-toxic appearing and is in no distress. Patient's UA is positive for nitrates, patient has not taken any azo or other [id number] UTI medication. Patient is appropriate for outpatient treatment and follow-up. Differential Diagnosis Differential diagnosis: Likely urinary tract infection and cystitis Critical Care Time Critical Care Time Critical Care Time: No Discharge Plan Discharge Clinical Impression: UTI (urinary tract infection) Patient Disposition: Home Condition: Stable Instructions: Antibiotic Form, Urinary Tract Infection in Women (ED) Additional Instructions: We will send a urine culture to the lab; if the culture identifies an organism that the prescribed antibiotic will not treat, you will receive a phone call from an urgent care staff member and an appropriate antibiotic will be prescribed. -Your symptoms should begin to improve within a day of starting antibiotics. But you should finish all the antibiotic pills you get. Otherwise your infection might come back. -Also recommend: increase water intake. Tylenol/ibuprofen as needed for pain or fever -Follow-up with your primary care provider for urine recheck or seek ER visit if condition worsens with high fever, nausea, vomiting and severe back pain. Patient Language: French Prescriptions: New amoxicillin-pot clavulanate 875-125 mg tablet 1 tablet PO Q12H 10 Days Qty: 20 0RF ondansetron 4 mg tablet,disintegrating 4 mg PO Q8H PRN (Reason: nausea and vomiting) Qty: 10 0RF No Action multivitamin Tablet 1 tablet PO DAILY nitrofurantoin monohyd/m-cryst [Macrobid] 100 mg capsule 100 mg PO Q12H 5 Days Qty: 10 0RF Rx Instructions: must administer with a meal/food Follow-up/Referrals: Mary Lou Sullivan NP [Primary Care Provider] - Time of Disposition: 16:23
--- OUTSIDE RECORDS SUMMARY | 2024-11-21 15:58 | XMS_ITS | Data Portability ---
Author Organization [facility], [place] Address [address] [place] [place] [address] Assessment Encounter Date Assessment Date Assessment LastModified [...] non-stre ss test 020 10/27/19 20 [email or web address] [facility] [place], [address], [place], [address], 0 13:43:19 Medication Orders Slynd 4 mg (28) tablet 020 11/30/19 20 [email or web address] 1 [facility], [address] [facility], [place], [address], 1 09:49:11 Patient TargetsNo targets recorded. Patient Instructions Encounter Date Encounter Id Patient Instructions Last Modified By Organization Details Last Modified Time 11/25/2019 [id number] start saturday on pop, discussed effectiveness of slynd, , call if any questions f/u wwe Not available 11/30/2019 16:17:51 06/08/2020 [id number] Suggest Calcium with Vitamin D if not [...] or email. Not available 06/08/2020 15:50:49 08/24/2020 [id number] doing well, f/u wwe in may 2021 Not available 08/24/2020 15:08:04 Reason for Referral None Reported. Results Created Date Observation Date Name Description Value Unit Range Abnormal Flag Note LastModifiedBy Organization Detail LastModifiedTime 09/29/1909/29/2019 non-s tress test Interpretati on Reacti ve. Gavino valdez RN Not Available [facility] [address], [place], [address], 09/29/2019 14:55:49 10/02/1910/02/2019 non-s tress test Heart Rate 125 Not Available [facility] [address], [place], [address], 10/02/2019 11:36:04 10/02/1910/02/2019 non-s tress test Acceleration s Yes Not Available [facility] [address], [place], [address], 10/02/2019 11:36:04 10/02/1910/02/2019 non-s tress test Interpretati on Reacti ve - Krysten wild RN Not Available [facility] [address], [place], [address], 10/02/2019 11:36:04 10/06/19 20 10/06/2019 US, obste tric, bioph ysica l profi le + non-s tress test BPP 12/18 Not Available [facility] [facility] [address], [place], [address], 10/06/2019 17:02:58 10/06/19 20 10/06/2019 non-s tress test Interpretati on NR. Needs BPP. heike muñoz RN Not Available [facility] [address], [place], [address], 10/06/2019 15:49:55 10/09/19 20 10/09/2019 non-s tress test Interpretati on Reacti ve. heike muñoz RN Not Available [facility] [address], [place], [address], 10/09/2019 11:30:36 10/13/19 20 10/13/2019 non-s tress test Interpretati on Reacti ve. Gavino valdez RN Not Available [facility] [address], [place], [address], 10/13/2019 14:59:25 10/16/19 20 10/16/2019 non-s tress test Interpretati on Nonrea ctive, needs repeat nst and bpp at rob on per sp Not Available [facility] [address], [place], [address], 10/16/2019 11:38:33 10/20/19 20 10/22/2019 strep tococ cus group B DNA GB specimen source Vagina l/Rect al Not Available [facility] ([facility]) [address], [place], [address], 10/22/2019 11:05:47 10/20/19 20 10/22/2019 strep tococ cus group B DNA spec type Cultur e Swab Not Available [facility] ([facility]) [address], [place], [address], 10/22/2019 11:05:47 10/20/19 20 10/22/2019 strep tococ [...] [facility] d/[facility]/a [facility], [address], [place] [address] , Anthony Erwin ra, DO, Labor atory Dire tor. Not Available [facility] ([facility]) [address], [place], [address], 10/22/2019 11:05:47 10/20/19 20 10/20/2019 non-s tress test Interpretati on Reacti ve-MK, RN Not Available [address], [place], [address], 10/20/2019 14:07:16 10/23/19 20 10/23/2019 non-s tress test Interpretati on Reacti ve-MKl auster roxann, RN Not Available [place] [address], [place], [address], 10/23/2019 11:28:35 10/27/19 20 10/27/2019 non-s tress test Interpretati on Reacti ve-MKl ausgarland RN Not Available [facility] [address], [place], [address], 10/27/2019 10:51:36 06/13/19 21 06/13/2020 US, socorro downs md interpretati on Not Available [facility] [address], [place], [address], 09/22/2019 16:25:29 06/24/19 21 06/24/2020 US, socorro downs md interpretati on Not Available [facility] [address], [place], [address], 10/20/2019 14:55:13 07/20/19 21 07/19/2020 CT/GC and trich omona s vagin jamison (rrna ), urine chlamydia trachomatis, PCR Negati ve negati ve Not Available [facility] (Lab) [address] [facility] [place], [address], 07/20/2020 13:53:13 07/20/19 21 07/19/2020 CT/GC and trich omona s vagin jamison (rrna ), urine neisseria gonorrhoeae, PCR Negati ve negati ve Not Available [facility] (Lab) [address] [facility] [place], [address], 07/20/2020 13:53:13 07/20/19 21 07/19/2020 CT/GC and trich omona s vagin jamison (rrna ), urine trichomonas vaginalis ribosomal RNA (rrna) Negati ve negati ve Not Available [facility] ([facility]) [address] [facility], [place], [address], 07/20/2020 13:53:13 07/20/19 21 07/19/2020 pregn juanita test, urine HCG negati ve Not Available [facility] [address], [place], [address], 07/19/2020 10:25:45 10/06/19 US, obste tric, bioph ysica l profi le No observ ation record ed. [email or web address] [facility] [address], [place], [address], 10/07/2019 10:56:47 10/16/19 20 10/16/2019 US, obste tric, limit ed No observ ation record ed. [email or web address] [facility] [address], [place], [address], 10/19/2019 14:55:19 10/17/19 20 10/17/2019 non-s tress test No observ ation record ed. [email or web address] Not Available 2019 16:11:58 10/20/19 US, obste tric, bioph ysica l profi le + non-s tress test No observ ation record ed. [email or web address] [address], [place], [address], 10/23/2019 13:44:58 10/27/19 20 10/26/2019 US, obste tric, limit ed No observ ation record ed. [email or web address] [facility] [address] [place], [address], 10/27/2019 17:36:55 10/27/19 20 10/26/2019 US, obste tric, limit ed No observ ation record ed. [email or web address] [facility] [address] [place], [address], 10/27/2019 17:36:55 10/27/19 20 10/26/2019 US, obste tric, follo w-up No observ ation record ed. [email or web address] [facility] [address] [place] [address], [address], 10/27/2019 17:32:13 Result Notes None recorded. Problems Name Problem SNOMED Code Status Onset Date Resolution Date Notes Provider Name and Address Organization Details Recorded Time Pregnanc y 31411811 Completed 201905/27/2020 Tobias herron, [facility] 17:10:57 Gestatio n less than 9 weeks 317908314 Completed 201806/08/2020 Less than 8 weeks gestatio n of pregnanc y;Record ed Elsewher e: No Locat ion: [facility] S ource: EHR [employer] Knitter phil: N Spencer ce ID: 0001 Noman lable Time: 11:30:00 AM Neva Flaherty [facility], [facility] 15:24:22 Palpitat ions 69960134 Completed 201406/08/2020 Palpitat ions;Rec orded Elsewher e: No Locat ion: [facility] S ource: E[facility] [employer] Kn[employer] phil: N Spencer ce ID: 0001 Noman lable Time: 01:00:00 PM Neva herron [facility] 15:24:37 Threaten ed miscarri age [id number] Completed 201806/08/2020 Threaten ed ;Recorde d Elsewher e: No Locat ion: [facility] S ource: EHR [employer] Knitter phil: N Toñoti ce ID: 0001 Noman lable Time: 11:45:00 AM Neva Flaherty [facility] 15:25:[address] Concept Completed 201806/08/2020 Encntr for general adult medical exam w/o abnormal findings ;Recorde d Elsewher e: No [facility] [employer] Knitter phil: N Toñoti ce ID: 0001 Noman lable Time: 10:30:00 AM Neva herron [facility] 15:24:59 Screenin g for malignan t neoplasm of cervix Completed 201406/08/2020 Screenin g for malignan t neoplasm s of the cervix;R ecorded Elsewher e: No Locat ion: [facility] To[facility]oti ce ID: 0001 Noman lable Time: 01:00:00 PM Neva herron, [facility] 15:24:51 Pregnanc y test positive [id number] Completed 201206/08/2020 Pregnanc y examinat ion or test, positive result;R ecorded Elsewher e: No Locat ion: [facility] N Toñoti ce ID: 0001 Noman lable Time: 08:45:00 AM Neva herron, [facility] 15:24:45 Normal pregnanc y in multigra nikki [id number] 4106 Completed 201906/08/2020 Encounte r for suprvsn of normal pregnanc y, second trimeste r;Record ed Elsewher e: No Locat ion: [facility] S ource: EHR [employer] Kn[employer] phil: N Practi ce ID: 0001 Noman lable Time: 02:30:00 PM Neva herron [facility] 1 15:24:31 Breast lump [id number] Completed 201408/24/2020 Lump in breast;R ecorded Elsewher e: No [facility]: E[facility] [employer] Knitter phil: N Practi ce ID: 0001 Noman lable Time: 11:30:00 AM Neva herron [facility] 1 14:51:57 Finding of viabilit y of pregnanc y [id number] Completed 201806/08/2020 Pregnanc y w inconclu sive viabilit y, unsp;Rec orded Elsewher e: No Locat ion: [facility] S ource: EHR Full [employer] Gar[employer] Knitter phil: N Toñoti ce ID: 0001 Noman lable Time: 11:30:00 AM Neva Flaherty [facility], [facility] 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 15:25:[address] Concept Completed 201506/08/2020 Encntr for medical records administrator exam (general ) (routine ) w/o abn findings ;Recorde d Elsewher e: No Locat ion: [facility] S ource: EHR [employer] Kn[employer] phil: N Toñoti ce ID: 0001 Noman lable Time: 01:00:00 PM Neva Flaherty gopal, [facility] 15:25:02 Amenorrh ea [id number] Completed 201208/24/2020 Absence of menstrua tion;Rec orded Elsewher e: No Locat ion: [facility] S ource: EHR [employer] Knitter phil: N Toñoti ce ID: 0001 Noman lable Time: 08:45:00 AM Neva Flaherty gopal, [facility] 14:51:55 Postpart um care Completed 201206/08/2020 Post Followup ;Recorde d Elsewher e: No Locat ion: [facility] S ource: EHR [employer] Knitter phil: N Spencer ce ID: 0001 Noman lable Time: 02:30:00 PM Neva Mitchelltz gopal [facility] 1 15:24:39 Urinary tract infectio us disease 40228315 Completed 201806/08/2020 Urinary tract infectio n, site not specifie d;Record ed Elsewher e: No Locat ion: [facility] N Spencer ce ID: 0001 Noman lable Time: 01:15:00 PM [facility] 15:25:13 Antenata l screenin g Completed 201806/08/2020 Encounte r for antenata l screenin g for nuchal transluc ency;Rec orded Elsewher e: No Locat ion: [facility] N Spencer ce ID: 0001 Noman lable Time: 10:30:00 AM Neva Flaherty [facility] 1 15:23:38 Contrace ption care Completed 201406/08/2020 Counseli ng and initiati on of contrace ptive method;R ecorded Elsewher e: No Locat ion: [facility] Mariluz Palmer ce ID: 0001 Noman lable Time: 01:00:00 PM Neva Flaherty [facility] 1 15:24:09 Antenata l screenin g for malforma tion Completed 201906/08/2020 Encounte r for antenata l screenin g for malforma tions;Re corded Elsewher e: No Locat ion: [facility] N Toñoti ce ID: 0001 Noman lable Time: 09:45:00 AM Neva Flaherty [facility] 1 15:25:17 Pregnanc y detectio n examinat ion Completed 201806/08/2020 Encounte r for pregnanc y test, result positive ;Recorde d Elsewher e: No Locat ion: [facility] S ource: EHR [employer] Knitter phil: N Practi ce ID: 0001 Noman lable Time: 11:30:00 AM Neva Flaherty [facility], [facility] 1 15:24:42 Evaluati on finding Completed 201806/08/2020 Hematuri a, unspecif ied;David rded Elsewher e: No Locat ion: [facility] S ource: EHR [employer] Knitter phil: N Practi ce ID: 0001 Noman lable Time: 01:15:00 PM Neva Flaherty [facility] 1 15:24:15 Primigra nikki 122460003 Completed 201206/08/2020 Supervis ion of normal first pregnanc y;Record ed Elsewher e: No Locat ion: [facility] S ource: EHR [employer] Knitter phil: N Practi ce ID: 0001 Noman lable Time: 08:45:00 AM Neva Flaherty [facility], [facility] 1 15:24:47 Ultrason ography Completed 201206/08/2020 Antenata l screenin g for malforma tion using ultrason ics;David rded Elsewher e: No Locat ion: [facility] S ource: EHR [employer] Knitter phil: N Practi ce ID: 0001 Noman lable Time: 02:30:00 PM Neva Flaherty [facility], [facility] 1 15:25:11 Congenit al malforma tion [id number] Completed 201206/08/2020 Antenata l screenin g for malforma tion using ultrason ics;David rded Elsewher e: No Locat ion: [facility] S ource: EHR [employer] Knitter phil: N Practi ce ID: 0001 Noman lable Time: 02:30:00 PM Neva herron [facility] 15:24:03 Evaluati on finding [id number] Completed 201406/08/2020 Oth abn and inconclu sive findings on dx imaging of breast;R ecorded Elsewher e: No Locat ion: [facility] S ource: EHR [employer] Knitter phil: N Toñoti ce ID: 0001 Noman lable Time: 12:01:01 PM Neva Flaherty [facility] 15:24:05 Secondar y amenorrh ea 700533710 Completed 201806/08/2020 Secondar y amenorrh ea;Recor ded Elsewher e: No Locat ion: [facility] N Toñoti ce ID: 0001 Noman lable Time: 11:30:00 AM Neva herron [facility] 15:24:54 Delivery normal 04240375 Completed 201206/08/2020 Normal delivery ;Practic e ID: 0001 Neva Flaherty [facility] 15:24:12 Labor and delivery complica margaret by heart rate anomaly 797060576 Completed 201206/08/2020 HEART RATE NON REASSURI NG;Pract ice ID: 0001 Neva Flaherty [facility], [facility] 15:24:27 Single live from singleto n pregnanc y 080892755 Completed 201206/08/2020 Mother with single liveborn ;Practic e ID: 0001 Neva Flaherty [facility] 15:24:57 Pelvic and perineal pain 431021685 Completed 201806/08/2020 Pelvic and perineal pain;Pra ctice ID: 0001 Neva herron [facility] 1 15:24:35 Gestatio nal diabetes mellitus 40123915 Completed 201908/24/2020 NEHA ROJAS, NSTs @ 32 weeks! Neva Flaherty [facility], [facility] 1 14:52:00 Gestatio nal diabetes mellitus 49521724 Completed 2019 NEHA ROJAS, NSTs @ 32 weeks! Tobias Pascal [facility], [facility] 1 17:10:50 Problem Notes None recorded. Procedures Surgical History Date Name Laterality Status Provider Name and Address Organization Details Recorded Time 1 IUD Insertion completed Dulce Fields CNM [address], [place], [address], [facility] 07/19/2020 10:00:44 1 Date of Last Pap Smear completed Neva Flaherty [facility] 06/08/2020 15:26:01 Imaging Results None recorded. Procedure Notes None recorded. Medical Equipment None Reported. Allergies Allergen ID Allergen Name Allergen Category Reaction Reaction Severity Criticality Documentation Date Start Date Code Code System Note Provider Name and Address Organization Details Recorded Time 104 Product containin g penicilli n (product) medicatio n Not available Not available Not available 08/25/2019 [address]90 [facility] Woojohny [facility] 0 12:15:30 105 Substance with sulfonami de structure and antibacte rial mechanism of action (substanc e) medicatio n Not available Not available Not available 08/25/2019 94552 8003 [facility] Gutierrez [facility] 0 12:15:54 Medications Name Sig Start Date Stop Date Status Note LastModified by Organization Details LastModified Time Mirena 21 mcg/24 hr (up to 8 years) 52 mg intrauter ine device Take by intraute rine route. 2020 active mirena IUD inserted 07/19/2020 and will 07/19/2025 Lot [id number] xp October 2022 Not Available Not Available Not Available clindamyc in HCl 300 mg capsule 08/24 completed Not Available Not Available Not Available Vitamin D2 1,250 mcg (50,000 unit) capsule take 1 capsule by oral route every week 02/11 completed Prescrib ed Elsewher e: No Locat ion: [facility] odify By: law valdez DateTime : 04/23/20 16 01:30:18 PM Not Available Not Available Not Available Ortho Tri-Cycle n (28) 0.18 mg(7)/0.2 15mg(7)/0 .25 mg(7)-0.0 35 mg tablet take 1 tablet by oral route every 28 days 12/24 completed Prescrib ed Elsewher e: No Locat ion: [facility] odify By: keyur Scott nter DateTime : [...] Prescrib ed Elsewher e: Yes Loca tion: [facility] odify By: keyur Scott nter DateTime : [...] Updated DateTime 06/08/2020 157.48 cm 21.8 kg/m2 59797.49 g 130/82 mm[Hg] Neva Flaherty [facility] 06/08/2020 15:23:31 Date Recorded Body height Body mass index (BMI) Body weight Systolic And Diastolic Provider Name and Address Organization Details Last Updated DateTime 07/19/2020 157.48 cm 21.4 kg/m2 20654.31 g 128/76 mm[Hg] Neva Flaherty [facility] 07/19/2020 09:49:06 Date Recorded Body height Body mass index (BMI) Body weight Systolic And Diastolic Provider Name and Address Organization Details Last Updated DateTime 08/24/2020 157.48 cm 20.3 kg/m2 51943.75 g 114/70 mm[Hg] Neva Flaherty [facility] 08/24/2020 14:51:23 Date Recorded Body weight Provider Name an d Address Organization Details Last Updated DateTime 11/25/2019 13440.31779 g Tobias Pascal [facility] 05/27/2020 17:10:51 Date Recorded Body height Body mass index (BMI) Systolic And Diastolic Provider Name and Address Organization Details Last Updated DateTime 11/25/2019 157.48 cm 18.7 kg/m2 131/92 mm[Hg] Neva Flaherty [facility] 11/25/2019 13:05:28 Social History Question Answer Notes LastModified by Organizat ion Details LastModified Time Tobacco Smoking Status Former Smoker Neva herron [facility] 09/08/2019 21:52:19 If You Are , What Was Your Level Of Alcohol Consumption Prior To ? Occasional [email or web address] Information not available 09/08/2019 Are You Blind Or Do You Have Difficulty Seeing? No Information not available 07/19/2020 What Is Your Level Of Caffeine Consumption? Occasional [email or web address] Information not available 07/19/2020 In The 14 Days Before Symptom Onset, Have You Had Close Contact With A Laboratory-confir med COVID-19 While That Case Was Ill? No [email or web address] Information not available 07/19/2020 In The 14 Days Before Symptom Onset, Have You Had Close Contact With A Person Who Is Under Investigation For COVID-19 While That Person Was Ill? No [email or web address] Information not available 07/19/2020 Have You Been To An Area Known To Be High Risk For COVID-19? No [email or web address] Information not available 07/19/2020 Are You Deaf Or Do You Have Serious Difficulty Hearing? No [email or web address] Information not available 07/19/2020 What Type Of Diet Are You Following? REGULAR [email or web address] Information not available 07/19/2020 What Was The Date Of Your Most Recent Tobacco Screening? 08/24/2020 [email or web address] Information not available 08/24/2020 Have You Ever Been Counseled For Unhealthy Alcohol Use? No [email or web address] Information not available 06/08/2020 Do You Use Your Seat Belt Or Car Seat Routinely? Yes [email or web address] Information not available 07/19/2020 Do You Have Smoke And Carbon Monoxide Detectors In Your Home? Yes [email or web address] Information not available 07/19/2020 How Much Tobacco Do You Smoke? No Information not available 11/25/2019 Smoking Pre- Yes [email or web address] Information not available 09/08/2019 Do You Use Sunscreen Routinely? Yes [email or web address] Information not available 07/19/2020 Has Tobacco Cessation Counseling Been Provided? No [email or web address] Information not available 06/08/2020 Sex: Unknown Functional Status Question Answer Note LastModified by Organizat ion Details LastModified Time Do you use any illicit or recreational drugs? No [email or web address] Information not available 06/08/2020 Do you or have you ever used any other forms of tobacco or nicotine? No [email or web address] Information not available 06/08/2020 What is your level of alcohol consumption? Occasional Information not available 09/08/2019 Do you or have you ever used smokeless tobacco? Never used smokeless tobacco [email or web address] Information not available 11/25/2019 Are you able to walk? YESWOREST [email or web address] Information not available 07/19/2020 Do you or have you ever used e-cigarettes or vape? Never used electronic cigarettes [email or web address] Information not available 11/25/2019 What is your exercise level? Occasional [email or web address] Information not available 09/08/2019 Mental Status Question Answer Note LastModified by Organization D etails LastModified Time Do you feel stressed (tense, restless, nervous, or anxious, or unable to sleep at night)? [id number] [email or web address] Information not available 07/19/2020 Family History Relationship [...] 14:01:37 Maternal Aunt Malignant tumor of breast [email or web address] Not available 06/08 20:05:34 Notes:Maternal grandfather: Heart [...] Code Diagnosis Note 669 Ramakrishna Castro MD [facility] [address] [address] 08/25/2019 11:44:33 08/25/2019 12:51:25 screening [id number] Z36.2 670 Ramakrishna Castro MD [facility] [address],[place] [address] 08/25/2019 11:44:33 08/25/2019 12:51:25 Routine care 413057514 Z34.83 1292 Ramakrishna Castro MD [facility] [address],[place] [address] 08/31/2019 09:37:51 08/31/2019 14:58:39 1593 [facility] [address],[place] [address] 09/02/2019 10:43:38 09/02/2019 12:16:33 Gestational diabetes mellitus complicating 8488318075 9106 O24.419 2508 Dulce Fields [facility] [address],[place] [address] 09/09/2019 12:22:41 09/09/2019 13:17:35 Routine care 144268922 Z34.93 4042 Ramakrishna Castro MD [facility] [address],[place] [address] 09/22/2019 15:08:04 09/22/2019 16:42:32 Gestational diabetes mellitus class A1 64144924 O24.410 4043 Ramakrishna Castro MD [facility] [address],[place] [address] 09/22/2019 15:09:02 09/22/2019 16:54:57 Gestational diabetes mellitus 99116031 O36.8330 Z3A.32 4044 [facility] [address],[place] [address] 09/22/2019 15:09:25 09/23/2019 16:33:39 Routine care [id number] Z34.93 4360 Ramakrishna Castro MD [facility] [address],[place] [address] 09/25/2019 11:35:08 09/28/2019 12:08:58 Gestational diabetes mellitus class A1 24198030 O24.410 4803 Sabiha Kaur MD [facility] [address],[place] [address] 09/29/2019 14:53:24 09/29/2019 16:46:41 Normal 08737025 Z34.93 4804 Ramakrishna Castro MD [facility] [address],[place] [address] 09/29/2019 14:53:45 09/29/2019 15:48:51 Gestational diabetes mellitus class A1 30453327 O24.410 5137 Ramakrishna Castro MD [facility] [address],[place] [address] 10/02/2019 11:26:51 10/02/2019 12:22:17 Gestational diabetes mellitus class A1 99063989 O24.410 5385 Ramakrishna Castro MD [facility] [address],[place] [address] 10/06/2019 14:58:18 10/06/2019 16:14:01 Gestational diabetes mellitus class A1 33020054 O24.410 5386 Ramakrishna Castro MD [facility] [address],[place] [address] 10/06/2019 14:58:50 10/06/2019 16:15:28 Routine care 538424304 Z34.83 5418 Ramakrishna Castro MD [facility] [address],[place] [address] 10/06/2019 17:01:14 10/07/2019 21:34:17 condition affecting obstetrical care of mother 138469271 O36.8330 5817 Ramakrishna Castro MD [facility] [address],[place] [address] 10/09/2019 11:24:45 10/09/2019 13:12:29 Gestational diabetes mellitus class A1 29507836 O24.410 6275 [facility] [address],[place] [address] 10/13/2019 14:58:34 10/13/2019 16:25:17 Routine care 247416555 Z34.93 6276 Ramakrishna Castro MD [facility] [address],[place] [address] 10/13/2019 14:58:52 10/13/2019 16:25:47 Gestational diabetes mellitus class A1 74472614 O24.410 6731 Ramakrishna Castro MD [facility] [address],[place] [address] 10/16/2019 11:34:07 10/16/2019 14:02:35 Gestational diabetes mellitus class A1 70469509 O24.410 7179 Ramakrishna Castro MD [facility] [address],[place] [address] 10/20/2019 13:55:49 10/20/2019 16:56:52 Gestational diabetes mellitus class A1 33844200 O24.410 7180 Ramakrishna Castro MD [facility] [address],[place] [address] 10/20/2019 13:56:07 10/20/2019 16:55:41 Gestational diabetes mellitus 76970001 O36.5930 Z3A.36 Small for gestational age fetus 359034340 O36.5930 Z3A.36 7181 Sabiha Kaur MD [facility] [address],[place] [address] 10/20/2019 13:56:26 10/20/2019 16:55:31 Normal 98829639 Z34.93 7717 Ramakrishna Castro MD [facility] [address],[place] [address] 10/23/2019 11:26:56 10/23/2019 12:28:08 Gestational diabetes mellitus class A1 96962086 O24.410 8132 [facility] [address],[place] [address] 10/27/2019 10:42:18 10/27/2019 16:57:07 Routine care 978851258 Z34.93 8133 Ramakrishna Castro MD [facility] [address],[place] [address] 10/27/2019 10:42:40 10/27/2019 13:43:19 Gestational diabetes mellitus class A1 61939205 O24.410 [id number] Dulce Fields [facility] [address],[place] [address] 11/25/2019 12:41:04 11/25/2019 17:02:25 care 942648422 Z39.2 Surveillan ce of oral contraception 512983324 Z30.41 45668 Dulce Fields [facility] [address],[place] [address] 06/08/2020 15:11:38 06/08/2020 16:11:59 Routine gynecologic examination done 7135992080 9101 Z01.419 18177 Dulce Fields [facility] [address],[place] [address] 07/19/2020 09:35:03 07/19/2020 10:07:19 Insertion of intrauterine contraceptive device 71499709 Z30.430 [id number] Dulce Fields [facility] [address],[place] [address] 08/24/2020 14:34:22 08/24/2020 15:48:00 IUD check 425343951 Z30.431 Health Concerns Section Related Observation LastModified by Organization Detai ls LastModified Time None Recorded Concern Status LastModified by Organization Details LastModified Time None Recorded Advance Directives Directive None Recorded Payers Insurance Date Sequence Insurance Name Policy Number Policy Lopez Covered Member ID Lopez Member ID Guarantor Name 08/28/2020 1 [facility] (MEDICAID HMO) [id number] Jia Reynoso [id number] Notes Date Note Type Note Provider Name and Address Organization Details Recorded Time 11/25/2019 text/html VisitReported bypatient.Notes:pp visit baby doing well, wants pill for bcm, breast feeding no complaints Dulce Fields CNM [address], [place], [address], [facility], [...] big! Dulce Fields CNM [address], [place], [address], [facility] 06/08/2020 15:51:05 07/19/2020 text/html Patient presents for IUD insertion. reviewed infection, perforation, and expulsion, questions answered. [address], [place], [address], [facility] 07/19/2020 10:01:41 08/24/2020 text/html Patient presents for IUD check, doing well [address] [place], [address], [facility] 08/24/2020 15:08:16 OBGyn Episode Ob Episode Information Episode Created Date Number of Fetuses Patient Bloodtype Patient rh Status Prepregnancy Weight lbs Domestic Partner Domestic Partner Phone Father Name Garden Machinery Mechanic Status 08/25/19 20 1 O Positive 104 CLOSED Fetus Data First Name Last Name Admitted to NICU Weight (g) Sex Living Outcome Pediatric Complications Fetus ID Race Codes Race Delivery Type 2011.81 45 F true Full Term 326 Vaginal Delivery Problems Problem Notes Problem Name Start Date End Date Resolution Snomed Code Not e Gestational diabetes mellitus 09/01/2019 [id number] BS QID, NSTs @ 32 weeks! Teo [...] Weight in lbs Pre/Post Dialysis Refused Weight 120.549121130138 BP Diastolic BP Location Tested BP Systolic [...] Weight in lbs Pre/Post Dialysis Refused Weight 118.759058311572 BP Diastolic BP Location Tested BP Systolic BP Type 69 105 Fetus Heart Rate Present Fetus Movement A Yes Comments Flowsheet Date 09/09/2019 Ren Score Blood Edema Fundus Height Fundus Units Glucose Ketones Leukocytes Nitrite Labor Signs Protein Cervic Dilation Cervic Effacement Cervic Station neg none 28 trace Type Weight in lbs Pre/Post Dialysis Refused Weight 120.391934443156 BP Diastolic BP Location Tested BP Systolic [...] Weight in lbs Pre/Post Dialysis Refused Weight 121.004016605947 BP Diastolic BP Location Tested BP Systolic [...] Weight in lbs Pre/Post Dialysis Refused Weight 107.367805972712 BP Diastolic BP Location Tested BP Systolic [...] Weight in lbs Pre/Post Dialysis Refused Weight 133.876004798315 BP Diastolic BP Location Tested BP Systolic BP Type 70 110 sitting Fetus Heart Rate Present Fetus Movement A Yes Comments gender us, female Flowsheet Date 07/10/2019 Ren Score Blood Edema Fundus Height Fundus Units Glucose Ketones Leukocytes Nitrite Labor Signs Protein Cervic Dilation Cervic Effacement Cervic Station none trace Type Weight in lbs Pre/Post Dialysis Refused Weight 116.66610624955 BP Diastolic BP Location Tested BP Systolic BP Type 65 100 sitting Fetus Heart Rate Present Fetus Movement A Yes Comments OB [id number] pt states that alcantara ving some nausea and vomiting, anatomy incomplete f/u in 4 weeks, LLP Flowsheet Date 08/04/2019 Ren Score Blood Edema Fundus Height Fundus Units Glucose Ketones Leukocytes Nitrite Labor Signs Protein Cervic Dilation Cervic Effacement Cervic Station none 25 neg Type Weight in lbs Pre/Post Dialysis Refused Weight 117.476210238457 BP Diastolic BP Location Tested BP Systolic BP Type 68 103 sitting Fetus Heart Rate Present A 140 Fetus Movement A Yes Comments OB [id number] pt states that alcantara ving nausea and [...] Weight in lbs Pre/Post Dialysis Refused Weight 123.155260126726 BP Diastolic BP Location Tested BP Systolic [...] Weight in lbs Pre/Post Dialysis Refused Weight 122.491084880146 BP Diastolic BP Location Tested BP Systolic [...] Weight in lbs Pre/Post Dialysis Refused Weight 123.743298978844 BP Diastolic BP Location Tested BP Systolic [...] Weight in lbs Pre/Post Dialysis Refused Weight 123.253361196726 BP Diastolic BP Location Tested BP Systolic [...] Weight in lbs Pre/Post Dialysis Refused Weight 102.985274565743 BP Diastolic BP Location Tested BP Systolic [...] Estim ated Date of Delivery false Thalassemia (Japanese, Cymraes, Mediterranean, Or Background): MCV < 80 false Neural Tube Defect (Meningomyelocele, Spina Bifi da, Or Anencephaly) false Congenital Heart Defect false Down Syndrome false Pepe-Sachs (eg, Mandaeism, Cajun, Korean-Dominican) f alse Tpi Disease false Sickle Cell Disease Or Trait () false Hemophilia Or Other Blood Disorders false Muscular Dystrophy false Cystic Fibrosis false [place]'s [place] false Intellectual Disability/Autism false If Yes, [...] 0 Sponta neous Regional-Ep idural 37.3 Dulce iFelds CNM GDM Discharge Information Feeding Method Contraceptive Method Maternal HG B and HCT Levels Ob Episode Information Episode Created Date Number of Fetuses Patient Bloodtype Patient rh Status Prepregnancy Weight lbs Domestic Partner Domestic Partner Phone Father Name Garden Machinery Mechanic Status 08/25/19 20 1 CLOSED Fetus Data [...] Domestic Partner Domestic Partner Phone Father Name Garden Machinery Mechanic Status 11/17/19 20 1 DELETED Teo Calculation [...]
--- OUTSIDE RECORDS SUMMARY | 2024-11-21 15:58 | XMS_ITS | Clinical Summary ---
Author Organization [facility] [employer] Address [address] 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 This disclosure is being madepursuant to the Care Everywhere program and may not contain all information available regarding this patient. Last updated 18.[facility] [employer] Allergies Active Allergy Reactions Criticality Noted Date [...] on file Legal Sex Female 5:41 AM AP[employer] Gender Identity Not on file Sexual Orientation [...] of 3 - 19+ 3-dose series) 2005 HPV VACCINE (1 - 3-dose SCDM series) 2013 COVID-19 VACCINE (1 - 2023-2 5 season) 2024 DEPRESSION SCREENING [...] patient's age to complete this topic [place] [address] [place] [address] [facility]
--- OUTSIDE RECORDS SUMMARY | 2024-11-21 15:58 | XMS_ITS | Data Portability ---
Author Organization [facility] SESARLuís Address [address] [place] [address] Assessment No assessment recorded. Plan of Treatment Reminders Order Date Submit Date Provider Last Modified By Organization Details Last Modified Time Details Appointments None recorded. Lab amylase + lipase, serum 2016 017 [facility], [address], [address], [place], [address], 7 15:59:19 lipid panel, serum 2016 017 [facility], [address], [address], [place], [address], 7 03:03:25 vitamin B12 + folate, serum or blood 2016 017 [facility], [address], [address], [place], [address], 7 15:59:18 CMP, serum or plasma 2016 017 [facility], [address], [address], [place], [address], 7 17:10:59 CBC 2016 017 [facility], [address], [address], [place], [address], 7 17:10:58 lipid panel, serum 2016 017 [facility], [address] [facility] [address], [address], [place], [address], 7 17:10:58 urinalysis , complete 2016 017 [facility], [address] [facility], [address], [place], [address], 7 17:11:01 HIV 1+2 AB + HIV 1 p24 Ag, qualitativ e immunoassa y, serum 2016 017 [facility], [address] [facility] [address], [address], [place], [address], 7 17:10:59 H pylori urea breath test, co2 infrared 2016 017 [facility], [address] [facility], [address], [place], [address], 7 17:11:02 Referral gastroente rologist referral - Please call patient to schedule. 2016 017 [email or web address] Not available 8 12:32:24 Procedures None recorded. Surgeries None recorded. Imaging CT, abdomen + pelvis, w/ contrast - Epigastric abdominal pain and distention [address] [facility] ([facility]), [address] [place], [address], 7 10:11:10 nicolás MIN r - Patient to schedule 2016 017 [facility] ([facility]), [address] [place], [address], 7 13:09:31 Medication Orders ranitidine 150 mg tablet 2016 017 [facility], [address] [place] [address], [address], 7 15:02:54 Patient TargetsNo targets recorded. Patient Instructions Encounter Date Encounter Id Patient Instructions Last Modified By Organization Details Last Modified Time 09/06/2016 [id number] A healthy lifestyle: care instructions hdoverma Not [...] 196 mg/dL 100-19 9 Not Available [facility] ([facility]) [address] [place], [address], 08/02/2016 17:10:58 08/02/19 17 08/02/2016 lipid panel , serum triglyceride s 264 mg/dL 0-149 above high normal Not Available [facility] ([facility]) [address] [place], [address], 08/02/2016 17:10:58 08/02/19 17 08/02/2016 lipid panel , serum LDL chol. (direct) 103 mg/dL 0-99 above high normal Not Available [facility] ([facility]) [address] [place], [address], 08/02/2016 17:10:58 08/02/19 17 08/02/2016 lipid panel , serum HDL cholesterol 79 mg/dL >39 Not Available [facility] ([facility]) [address] [place], [address], 08/02/2016 17:10:58 08/02/19 17 08/02/2016 lipid panel , serum VLDL cholesterol angelia 53 mg/dL 5-40 above high normal Not Available [facility] ([facility]) [address], [place], [address], 08/02/2016 17:10:58 08/02/19 17 08/02/2016 lipid panel , serum LDL cholesterol calc 64 mg/dL 0-99 Not Available [facility] ([facility]) [address], [place], [address], 08/02/2016 17:10:58 08/02/19 17 08/02/2016 lipid panel , serum 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 2 LDL/H DL RATIO MEN WOMEN 1/2 AVG.R ISK 1.0 1.5 AVG.R ISK 3.6 3.2 2X AVG.R ISK 6.2 5.0 3X AVG.R ISK 8.0 6.1 Not Available [facility] ([facility]) [address], [place], [place], [address], 08/02/2016 17:10:58 08/02/19 17 08/02/2016 CBC WBC 10.3 x10e3 /uL 3.4-10 .8 Not Available [facility] ([facility]) [address], [place], [address], 08/02/2016 17:10:58 08/02/19 17 08/02/2016 CBC RBC 4.33 x10e6 /uL 3.77-5 .28 Not Available [facility] ([facility]) [address], [place], [address], 08/02/2016 17:10:58 08/02/19 17 08/02/2016 CBC hemoglobin 14.3 g/dL 11.1-1 5.9 Not Available [facility] ([facility]) [address], [place], [address], 08/02/2016 17:10:58 08/02/19 17 08/02/2016 CBC hematocrit 43.4 % 34.0-4 6.6 Not Available [facility] ([facility]) [address] [place], [address], 08/02/2016 17:10:58 08/02/19 17 08/02/2016 CBC MCV 100 fL 79-97 above high normal Not Available [facility] ([facility]) [address] [place], [address], 08/02/2016 17:10:58 08/02/19 17 08/02/2016 CBC MCH 33.0 pg 26.6-3 3.0 Not Available [facility] ([facility]) [address] [place], [address], 08/02/2016 17:10:58 08/02/19 17 08/02/2016 CBC MCHC 32.9 g/dL 31.5-3 5.7 Not Available [facility] ([facility]) [address], [place], [place], [address], 08/02/2016 17:10:58 08/02/19 17 08/02/2016 CBC RDW 14.6 % 12.3-1 5.4 Not Available [facility] ([facility]) [address] [place], [address], 08/02/2016 17:10:58 08/02/19 17 08/02/2016 CBC platelets 272 x10e3 /uL 150-37 9 Not Available [facility] ([facility]) [address], [place], [address], 08/02/2016 17:10:58 08/02/19 17 08/02/2016 CBC neutrophils 72 % Not Avai lable [facility] ([facility]) [address] [place], [address], 08/02/2016 17:10:58 08/02/19 17 08/02/2016 CBC lymphs 21 % Not Available [facility] ([facility]) [address] [place], [address], 08/02/2016 17:10:58 08/02/19 17 08/02/2016 CBC monocytes 5 % Not Availa ble [facility] ([facility]) [address] [place], [address], 08/02/2016 17:10:58 08/02/19 17 08/02/2016 CBC eos 2 % Not Available [facility] ([facility]) [address] [place], [address], 08/02/2016 17:10:58 08/02/19 17 08/02/2016 CBC basos 0 % Not Available [facility] ([facility]) [address] [place], [address], 08/02/2016 17:10:58 08/02/19 17 08/02/2016 CBC immature cells 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 0 above high normal Not Available [facility] ([facility]) [address] [place], [address], 08/02/2016 17:10:58 08/02/19 17 08/02/2016 CBC lymphs (absolute) 2.2 x10e3 /uL 0.7-3. 1 Not Available [facility] ([facility]) [address] [place], [address], 08/02/2016 17:10:58 08/02/19 17 08/02/2016 CBC monocytes(ab solute) 0.5 x10e3 /uL 0.1-0. 9 Not Available [facility] ([facility]) [address], [place], [place], [address], 08/02/2016 17:10:58 08/02/19 17 08/02/2016 CBC eos (absolute) 0.2 x10e3 /uL 0.0-0. 4 Not Available [facility] ([facility]) [address], [place], [place], [address], 08/02/2016 17:10:58 08/02/19 17 08/02/2016 CBC baso (absolute) 0.0 x10e3 /uL 0.0-0. 2 Not Available [facility] ([facility]) [address], [place], [place], [address], 08/02/2016 17:10:58 08/02/19 17 08/02/2016 CBC immature granulocytes 0 % Not Available [facility] ([facility]) [address], [place], [place], [address], 08/02/2016 17:10:58 08/02/19 17 08/02/2016 CBC immature grans (abs) 0.0 x10e3 /uL 0.0-0. 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 Not Available [facility] ([facility]) [address], [place], [address], 08/02/2016 17:10:58 08/02/19 17 08/02/2016 CBC hematology comments: 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 Not Available [facility] ([facility]) [address], [place], [place], [address], 08/02/2016 17:10:58 08/02/19 17 08/02/2016 CMP, serum or plasm a glucose, serum 98 mg/dL 65-99 Not Available [facility] ([facility]) [address] [place], [address], 08/02/2016 17:10:59 08/02/19 17 08/02/2016 CMP, serum or plasm a BUN 7 mg/dL 6-20 Not Available [facility] ([facility]) [address] [place], [address], 08/02/2016 17:10:59 08/02/19 17 08/02/2016 CMP, serum or plasm a creatinine, serum 0.69 mg/dL 0.57-1 .00 Not Available [facility] ([facility]) [address] [place], [address], 08/02/2016 17:10:59 08/02/19 17 08/02/2016 CMP, serum or plasm a eGFR if nonafricn AM 117 mL/mi n/1.7 3 >59 Not Available [facility] ([facility]) [address] [place], [address], 08/02/2016 17:10:59 08/02/19 17 08/02/2016 CMP, serum or plasm a eGFR if africn AM 135 mL/mi n/1.7 3 >59 Not Available [facility] ([facility]) [address] [place], [address], 08/02/2016 17:10:59 08/02/19 17 08/02/2016 CMP, serum or plasm a BUN/creatini ne ratio 10 8-20 Not Available [facility] ([facility]) [address] [place], [address], 08/02/2016 17:10:59 08/02/19 17 08/02/2016 CMP, serum or plasm a sodium, serum 140 mmol/ L 134-14 4 Not Available [facility] ([facility]) [address] [facility] [place], [address], 08/02/2016 17:10:59 08/02/19 17 08/02/2016 CMP, serum or plasm a potassium, serum 3.9 mmol/ L 3.5-5. 2 Not Available [facility] ([facility]) [address], [place], [address], 08/02/2016 17:10:59 08/02/19 17 08/02/2016 CMP, serum or plasm a chloride, serum 99 mmol/ L 96-106 Not Available [facility] ([facility]) [address] [place], [address], 08/02/2016 17:10:59 08/02/19 17 08/02/2016 CMP, serum or plasm a carbon dioxide, total 22 mmol/ L 18-29 Not Available [facility] ([facility]) [address] [place], [address], 08/02/2016 17:10:59 08/02/19 17 08/02/2016 CMP, serum or plasm a calcium, serum 9.0 mg/dL 8.7-10 .2 Not Available [facility] ([facility]) [address] [place], [address], 08/02/2016 17:10:59 08/02/19 17 08/02/2016 CMP, serum or plasm a protein, total, serum 6.7 g/dL 6.0-8. 5 Not Available [facility] ([facility]) [address] [place], [address], 08/02/2016 17:10:59 08/02/19 17 08/02/2016 CMP, serum or plasm a albumin, serum 4.3 g/dL 3.5-5. 5 Not Available [facility] ([facility]) [address] [place] [address], [address], 08/02/2016 17:10:59 08/02/19 17 08/02/2016 CMP, serum or plasm a globulin, total 2.4 g/dL 1.5-4. 5 Not Available [facility] ([facility]) [address] [place], [address], 08/02/2016 17:10:59 08/02/19 17 08/02/2016 CMP, serum or plasm a A/G ratio 1.8 1.2-2. 2 PLE ASE NOTE REFER ENCE INTER KEVON MATHIS E Not Available [facility] ([facility]) [address] [place], [address], 08/02/2016 17:10:59 08/02/19 17 08/02/2016 CMP, serum or plasm a bilirubin, total 0.6 mg/dL 0.0-1. 2 Not Available [facility] ([facility]) [address] [place], [address], 08/02/2016 17:10:59 08/02/19 17 08/02/2016 CMP, serum or plasm a alkaline phosphatase, S 69 IU/L 39-117 Not Available [facility] ([facility]) [address] [place], [address], 08/02/2016 17:10:59 08/02/19 17 08/02/2016 CMP, serum or plasm a AST (SGOT) 22 IU/L 0-40 Not Available [facility] ([facility]) [address] [place], [address], 08/02/2016 17:10:59 08/02/19 17 08/02/2016 CMP, serum or plasm a ALT (SGPT) 12 IU/L 0-32 Not Available [facility] ([facility]) [address] [place], [address], 08/02/2016 17:10:59 08/02/19 17 08/02/2016 HIV 1+2 AB + HIV 1 p24 Ag, quali tativ e immun oassa y, serum HIV screen 4TH generation wrfx NON REACTI VE non reacti ve Not Available [facility] ([facility]) [address] [place], [address], 08/02/2016 17:10:59 08/16/19 17 08/16/2016 urina lysis , compl ete specific gravity 1.023 1.005- 1.030 Not Available [facility] ([facility]) [address] [place], [address], 08/17/2016 17:11:01 08/16/19 17 08/16/2016 urina lysis , compl ete pH 6.0 5.0-7. 5 Not Available [facility] ([facility]) [address] [place], [address], 08/17/2016 17:11:01 08/16/19 17 08/16/2016 urina lysis , compl ete urine-color ORANGE yellow Not Available [facility] ([facility]) [address] [place], [address], 08/17/2016 17:11:01 08/16/19 17 08/16/2016 urina lysis , compl ete appearance TURBID clear abnormal Not Available [facility] ([facility]) [address] [place], [address], 08/17/2016 17:11:01 08/16/19 17 08/16/2016 urina lysis , compl ete WBC esterase 2+ negati ve abnormal Not Available [facility] ([facility]) [address] [place], [address], 08/17/2016 17:11:01 08/16/19 17 08/16/2016 urina lysis , compl ete protein 2+ negati ve/tra ce abnormal Not Available [facility] ([facility]) [address] [place], [address], 08/17/2016 17:11:01 08/16/19 17 08/16/2016 urina lysis , compl ete glucose NEGATI VE negati ve Not Available [facility] ([facility]) [address] [place], [address], 08/17/2016 17:11:01 08/16/19 17 08/16/2016 urina lysis , compl ete ketones NEGATI VE negati ve Not Available [facility] ([facility]) [address] [place], [address], 08/17/2016 17:11:01 08/16/19 17 08/16/2016 urina lysis , compl ete occult blood 3+ negati ve abnormal Not Available [facility] ([facility]) [address] [place], [address], 08/17/2016 17:11:01 08/16/19 17 08/16/2016 urina lysis , compl ete bilirubin NEGATI VE negati ve Not Available [facility] ([facility]) [address] [place], [address], 08/17/2016 17:11:01 08/16/19 17 08/16/2016 urina lysis , compl ete urobilinogen ,semi-qn 1.0 mg/dL 0.2-1. 0 Not Available [facility] ([facility]) [address] [place], [address], 08/17/2016 17:11:01 08/16/19 17 08/16/2016 urina lysis , compl ete nitrite, urine POSITI VE negati ve abnormal Not Available [facility] ([facility]) [address] [place], [address], 08/17/2016 17:11:01 08/16/19 17 08/16/2016 urina lysis , compl ete microscopic examination SEE BELOW: MICRO SCOPI C WAS INDIC ATED AND WAS PERFO RMED. Not Available [facility] ([facility]) [address] [place], [address], 08/17/2016 17:11:01 04/05/20 17 08/16/2016 urina lysis , compl ete WBC >30 /hpf 0 - 5 abnormal CLUMP S OF LEUKO CYTES PRESE NT. Not Available [facility] ([facility]) [address], [place], [place], [address], 08/17/2016 17:11:01 08/16/19 17 08/16/2016 urina lysis , compl ete RBC 0-2 /hpf 0 - 2 Not Available [facility] ([facility]) [address], [place], [place], [address], 08/17/2016 17:11:01 08/16/19 17 08/16/2016 urina lysis , compl ete epithelial cells (non renal) 0-10 /hpf 0 - 10 Not Available [facility] ([facility]) [address], [place], [place], [address], 08/17/2016 17:11:01 08/16/19 17 08/16/2016 urina lysis , compl ete epithelial cells (renal) 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 Not Available [facility] ([facility]) [address], [place], [place], [address], 08/17/2016 17:11:01 08/16/19 17 08/16/2016 urina lysis , compl ete casts 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 Not Available [facility] ([facility]) [address], [place], [place], [address], 08/17/2016 17:11:01 08/16/1908/16/2016 urina lysis , compl ete cast type 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 Not Available [facility] ([facility]) [address], [place], [place], [address], 08/17/2016 17:11:01 08/16/19 17 08/16/2016 urina lysis , compl ete crystals 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 Not Available [facility] ([facility]) [address], [place], [place], [address], 08/17/2016 17:11:01 08/16/19 17 08/16/2016 urina lysis , compl ete crystal type 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 Not Available [facility] ([facility]) [address], [place], [place], [address], 08/17/2016 17:11:01 08/16/19 17 08/16/2016 urina lysis , compl ete mucus threads PRESEN T not estab. 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 Not Available [facility] ([facility]) [address], [place], [place], [address], 08/17/2016 17:11:01 08/16/19 17 08/16/2016 urina lysis , compl ete trichomonas 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 Not Available [facility] ([facility]) [address], [place], [place], [address], 08/17/2016 17:11:01 08/16/19 17 08/16/2016 urina lysis , compl ete comment 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 Not Available [facility] ([facility]) [address], [place], [place], [address], 08/17/2016 17:11:01 08/16/19 17 08/17/2016 H pylor i urea breat h test, co2 infra red H. pylori breath test NEGATI VE negati ve Not Available [facility] ([facility]) [address] [place], [address], 08/17/2016 17:11:02 08/17/19 17 08/16/2016 US, annamarie valdez No observ ation record ed. [facility] ([facility]) [address], [place], [address], 09/06/2016 15:50:30 Result Notes None recorded. Problems No Known Problems Medical Equipment None Reported. Allergies Allergen ID Allergen Name Allergen Category Reaction Reaction Severity Criticality Documentation Date Start Date Code Code System Note Provider Name and Address Organization Details Recorded Time 31875 Substance with sulfonami de structure and antibacte rial mechanism of action (substanc e) medicatio n hives severe Not available 09/06/2016 [id number] SNOMED Jenny Caraballo MD Attn: Feli kirby,[address] [facility], [place], [address] , [facility] 7 15:48:59 Medications Name Sig Start [...] Address Organization Details Last Updated DateTime 7 84246.2 3 g 80 /min 98 % 98 % 98.1 [degF] 116/70 mm[Hg] Vanessa Estrada [place] [facility] 7 14:41:27 Date Recorded Body weight Heart rate Body temperature Oxygen saturation Oxygen saturation in Arterial blood by Pulse oximetry Systolic And Diastolic Provider Name and Address Organization Details Last Updated DateTime 7 76927.2 2 g 63 /min 98.4 [degF] 99 % 99 % 110/68 mm[Hg] Vanessa Estrada MA [facility] 7 15:38:36 Social History Question Answer Notes LastModified by Organizat ion Details LastModified Time Tobacco Smoking Status Former Smoker Vanessa Estrada KALEN null, [facility] 07/27/2016 14:44:24 How Much Tobacco Do You [...] Skin Problems N Anemia N Heart Attack ([place]) N Anxiety Disorder N Diabetes N Muscle, Joint, or Bone Problems N Seizures/Epilepsy N Acid Reflux (GERD) N Cancer N Stroke N Asthma N Allergies N High Cholesterol Y Hepatitis N Liver Disease N Headaches N Osteoporosis N Heart Failure N Gynecological History Statement/Question Response Current Control Method Obstetrics History GPAL:G 0 P 0 0 0 0 Immunizations Vaccine Type Date Status Note Provider Nam e and Address Organization Details Recorded Time Tdap 05/13/2013 completed Jenny Caraballo MD Attn: [address] [place], [address], [facility] 07/27/2016 14:53:55 Past Encounters Encounter ID Performer Location Encounter Start Date Encounter Closed Date Diagnosis/Indication Diagnosis SNOMED-CT Code Diagnosis ICD10 Code Diagnosis Note [id number] MD Gennaro Kidd (Adult Med) [address] [place] [phone] 07/27/2016 14:22:25 07/27/2016 17:34:39 Adult health examination 342561300 Z00.01 Right uppe r quadrant pain 583217990 R10.11 Hyperlipidemia 49980140 E78.5 [id number] MD Gennaro Kidd (Adult Med) [address] [place] [phone] 09/06/2016 15:14:59 09/06/2016 17:58:50 Abdominal pain 64932695 R10.9 Laboratory test result abnormal 424006209 R89.9 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 07/27/2016 15:39:34 09/06/2016 text/html Abdominal PainReported [facility]patient.[facility] Quality:pain Severity:mild Duration:intermitten t Onset/Timing:gone now Modifying Factors:nothing gives relief Associated Symptoms:no fever; no chills; no blood in the urine; no heartburn; no shortness of breath Other:denies possible Jenny Caraballo MD Attn: [address] [place], [address], [facility] 09/06/2016 23:25:51 OBGyn Episode No OBEpisode recorded.
[2024-11-21 16:04] VITALS: BP 98/79; PULSE 105; RESP 18; TEMP 37; O2SAT 99
[2024-11-21 16:14] LABS: EDUAAPPEAR Cloudy; EDUABILI 3+ (Negative); EDUABLOOD Negative (Negative); EDUACOLOR1 Brown; EDUAGLUCOSE Trace (Negative); EDUAKETONE 1+ (Negative); EDUALEUKO Negative (Negative); EDUANITRATE Positive (Negative); EDUAPH 5.5; EDUAPROTEIN 2+ (Negative); EDUASPGRAVITY 1.025; EDUAUROBILI 8.0
== END 2024-11-21 16:25 | disposition home or self-care (01) ==
PROVIDERS: Emergency Provider Nurse Practitioner; PCP Nurse Practitioner Family
DX: N39.0 Urinary tract infection, site not specified (principal); F17.210 Nicotine dependence, cigarettes, uncomplicated
CPT/HCPCS: 81003; 87086; 99213; G0463